=== PATIENT | female | born 1945 | race Caucasian/White ===

== ENCOUNTER 2022-01-02 01:50 | Inpatient (IN) | payer MEDICARE, SELFPAY ==
[2022-01-02] VITALS (16 sets, daily range): BP systolic 107–180; BP diastolic 30–78; PULSE 52–75; RESP 12–20; TEMP 36.2–37.5; O2SAT 93–100; BMI 33.0
--- NOTE | ~2022-01-02 | XR_ITS ---
EXAMINATION: XR CHEST CLINICAL INFORMATION: Chest pain COMPARISON: None TECHNIQUE: Frontal view of the chest was obtained. FINDINGS: Normal symmetric lung volumes. No parenchymal consolidation. No pleural effusion. No pneumothorax. Cardiomediastinal silhouette and pulmonary vascularity are within normal limits. No acute osseous abnormalities. XR/XR chest 1V IMPRESSION: Unremarkable examination.
--- NOTE | ~2022-01-02 | US_ITS ---
EXAMINATION: US ABDOMEN LIMITED CLINICAL INFORMATION: Cholecystitis. COMPARISON: CT performed earlier same date TECHNIQUE: Real-time imaging of the right upper quadrant abdominal viscera. FINDINGS: Multiple large stones present within the gallbladder, including a 4 cm stone seen on the prior CT which appears impacted near the gallbladder neck. Gallbladder wall is thickened 5 mm with intramural edema. Sonographic Lambert sign is positive. Common bile duct measures 0.5 cm. US/US abdomen limited IMPRESSION: Findings compatible with acute calculus cholecystitis.
--- NOTE | ~2022-01-02 | CT_ITS ---
EXAMINATION: CT ABDOMEN AND PELVIS WITHOUT CONTRAST CLINICAL INFORMATION: Right upper quadrant and epigastric pain COMPARISON: 02/08/2008 TECHNIQUE: Multidetector volumetric imaging was performed from the superior aspect of the liver through the pubic symphysis. Sagittal and coronal reformatted images were obtained on the technologist's workstation. This CT examination was performed using dose optimization techniques as appropriate, variously including the following: *Automated exposure control *Adjustment of mA and/or kV according to patient size (this includes techniques or standardized protocols for targeted exams where dose is matched to indication/reason for exam; i.e. extremities or head) *Use of iterative reconstruction technique DLP: 659* mGy-cm FINDINGS: LUNG BASES: The visualized lung bases are unremarkable. LIVER, GALLBLADDER, AND BILIARY TREE: The liver is normal in size, shape, and attenuation. No focal hepatic lesion or biliary ductal dilatation is present. There is cholelithiasis, with a large 3.8 cm stone within the gallbladder neck. Gallbladder wall thickening is evident. PANCREAS: Unremarkable. SPLEEN: Unremarkable. ADRENAL GLANDS: Unremarkable. KIDNEYS AND URETERS: The kidneys are normal in size, shape, and attenuation. There is a 4.0 cm simple cyst in the anterior cortex of the right kidney and a 2.5 cm simple cyst in the posterior cortex of the right kidney. These are benign and require no further follow-up. No hydronephrosis, hydroureter, or calculi seen. No perinephric stranding. BLADDER: Unremarkable. GASTROINTESTINAL TRACT: Scattered sigmoid colonic diverticula. No evidence of diverticulitis. Normal appendix. Stomach and small bowel unremarkable. ABDOMINAL WALL: No significant hernia is appreciated. LYMPH NODES: Normal. VASCULAR: Aorta is atherosclerotic but normal caliber. PELVIC VISCERA: Uterus and ovaries unremarkable. OSSEOUS STRUCTURES: No acute or suspicious osseous abnormalities. CT/CT abdomen pelvis wo con IMPRESSION: * There is cholelithiasis including a large nearly 4 cm stone in the gallbladder neck. Gallbladder wall thickening and mild gallbladder distention is findings could certainly be compatible with cholecystitis from a CT imaging standpoint. * Scattered sigmoid colonic diverticula without evidence of diverticulitis. Fleischner guidelines were followed.
[2022-01-02 02:03] LABS: Glucose, Whole Blood 218 mg/dL (60-115)
--- NOTE | 2022-01-02 02:14 | ED_ITS ---
HPI - Chest Pain General Chief Complaint: Chest Pain Stated Complaint: CP,SOB [id number] Time Seen by Provider: 01/02/22 02:14 Source: patient Mode of arrival: ambulatory Limitations: no limitations History of Present Illness HPI narrative: Patient with no known coronary artery disease comes to the ER for mid chest pain epigastric pain radiating to the right side since 18:30 yesterday. Patient feel nauseated took ibuprofen without any response. No vomiting no diaphoresis no back pain patient does have history of diabetes and she is on metformin patient received aspirin by EMS no fever no chills no diarrhea no melena patient denies any palpitation no dizziness or syncope Related Data Allergies Allergy/AdvReac Type Severity Reaction Status Date / Time No Known Allergies Allergy Mild N/A Verified 01/02/22 02:03 Review of Systems Review of Systems: Yes all other systems are reviewed and are negative [facility] Social History Social History Advance Directives: No Advance Directives Information Provided: No Physical Exam Vital Signs: Vital Signs: Last Vital Signs Temp 98.1 F 01/02/22 01:53 Pulse 56 01/02/22 06:14 Resp 14 01/02/22 06:14 BP 140/58 H 01/02/22 06:14 Pulse Ox 97 01/02/22 06:14 O2 Del Method 01/02/22 06:14 BMI result Body Mass Index 33.0 Appearance: Alert. Oriented X3. No acute distress. Eyes: No pallor or icterus ENT: Pharynx normal. Oral Mucosa moist Neck: Normal inspection. Neck supple. CVS: Normal heart rate and rhythm. Pulses normal. Respiratory: No respiratory distress. Equal air entry bilateral, no wheezin g/rales/rhonchi Abdomen: Soft , tenderness in epigastric and right upper quadrant with guarding , Lambert sign positive no rebound tenderness Bowel sounds are present, no mass palpable, no CVA tenderness Skin: Skin warm and dry. Normal skin color. Normal skin turgor. Extremities: No lower extremity edema. No calf tenderness Neuro: Oriented X 3. No motor deficit. MDM - Chest Pain MDM Narrative Medical decision making narrative: Patient with epigastric pain sudden onset with nausea workup revealed 4 cm gallstone blocking the gallbladder neck with findings of gallbladder wall thickening and fluid collection suggestive of acute cholecystitis. Case discussed Dr. Ribera surgeon will admit the patient to surgery Differential Diagnosis Differential diagnosis: Likely atypical chest pain and biliary colic Medical Records Data Attestation: I reviewed the patient's medical records. Lab Data Attestation: I reviewed the patient's lab results. Result diagrams: 01/02/22 02:40 01/02/22 03:37 Labs: Lab Results 01/02/22 01/02/22 01/02/22 Range/Units 01:59 02:40 02:40 WBC 10.4 (4.8-10.8) X10*3/uL RBC 4.21 (4.20-5.50) X10*6/uL Hgb 13.7 (12.0-16.0) g/dl Hct 38.9 (37.0-47.0) % MCV 92.4 (80.0-98.0) fL MCH 32.5 (27.0-33.0) pg MCHC 35.2 H (31.0-35.0) g/dl RDW 12.2 (11.0-16.0) % Plt Count 288 (160-400) X10*3/uL MPV 9.7 (9.4-12.3) fL Immature Gran % (Auto) 0.3 (0.0-0.4) % Neut % (Auto) 84.5 H (45-73) % Lymph % (Auto) 8.8 L (20-40) % [place] % (Auto) 5.7 (2-11) % Eos % (Auto) 0.4 (0-4) % Baso % (Auto) 0.3 (0-2) % Lymph # (Auto) 0.9 L (1.2-4.9) X10*3/uL [place] # (Auto) 0.6 (0.1-1.2) X10*3/uL Eos # (Auto) 0.0 (0.0-0.4) X10*3/uL Baso # (Auto) 0.0 (0.0-0.2) X10*3/uL Abs Immat Gran (auto) 0.03 (0.00-0.03) X10*3/uL Absolute Neuts (auto) 8.8 H (2.0-8.3) x10*3/uL Absolute Nucleated RBC 0.000 (0.0-0.012) X10*3/uL Nucleated RBC % (auto) 0.0 (0.0-0.2) /100WBC PT 11.7 (9.9-13.0) SEC INR 1.0 (0.9-1.1) APTT 35.1 (24.1-38.0) SEC Sodium (135-145) mmol/L Potassium (3.3-5.1) mmol/L Chloride (96-108) mmol/L Carbon Dioxide (22-29) mmol/L Anion Gap (12-20) BUN (9-16) mg/dL Creatinine (0.5-1.4) mg/dL Estim Creat Clear Calc Estimated GFR POC Glucose 218 H (60-115) mg/dL Random Glucose (60-115) mg/dL Lactic Acid (0.5-2.0) mmol/L Calcium (8.4-10.2) mg/dL Total Bilirubin (0.0-1.0) mg/dL AST (5-31) U/L ALT (0-31) U/L Alkaline Phosphatase (39-117) U/L Troponin I High Sens (<3.5-17.0) ng/L Total Protein (6.5-8.0) g/dL Albumin (3.5-5.0) g/dL Lipase (8-78) U/L 01/02/22 01/02/22 01/02/22 Range/Units 02:40 02:40 03:37 WBC (4.8-10.8) X10*3/uL RBC (4.20-5.50) X10*6/uL Hgb (12.0-16.0) g/dl Hct (37.0-47.0) % MCV (80.0-98.0) fL MCH (27.0-33.0) pg MCHC (31.0-35.0) g/dl RDW (11.0-16.0) % Plt Count (160-400) X10*3/uL MPV (9.4-12.3) fL Immature Gran % (Auto) (0.0-0.4) % Neut % (Auto) (45-73) % Lymph % (Auto) (20-40) % [place] % (Auto) (2-11) % Eos % (Auto) (0-4) % Baso % (Auto) (0-2) % Lymph # (Auto) (1.2-4.9) X10*3/uL [place] # (Auto) (0.1-1.2) X10*3/uL Eos # (Auto) (0.0-0.4) X10*3/uL Baso # (Auto) (0.0-0.2) X10*3/uL Abs Immat Gran (auto) (0.00-0.03) X10*3/uL Absolute Neuts (auto) (2.0-8.3) x10*3/uL Absolute Nucleated RBC (0.0-0.012) X10*3/uL Nucleated RBC % (auto) (0.0-0.2) /100WBC PT (9.9-13.0) SEC INR (0.9-1.1) APTT Cancelled (24.1-38.0) SEC Sodium 137 (135-145) mmol/L Potassium 4.9 (3.3-5.1) mmol/L Chloride 109 H (96-108) mmol/L Carbon Dioxide 19 L (22-29) mmol/L Anion Gap 14 (12-20) BUN 15 (9-16) mg/dL Creatinine 0.94 (0.5-1.4) mg/dL Estim Creat Clear Calc 48.5 Estimated GFR 58 POC Glucose (60-115) mg/dL Random Glucose 196 H (60-115) mg/dL Lactic Acid (0.5-2.0) mmol/L Calcium 8.1 L (8.4-10.2) mg/dL Total Bilirubin 0.7 (0.0-1.0) mg/dL AST 21 (5-31) U/L ALT 15 (0-31) U/L Alkaline Phosphatase 58 (39-117) U/L Troponin I High Sens 5.9 (<3.5-17.0) ng/L Total Protein 6.6 (6.5-8.0) g/dL Albumin 3.6 (3.5-5.0) g/dL Lipase 13 (8-78) U/L 01/02/22 Range/Units 05:04 WBC (4.8-10.8) X10*3/uL RBC (4.20-5.50) X10*6/uL Hgb (12.0-16.0) g/dl Hct (37.0-47.0) % MCV (80.0-98.0) fL MCH (27.0-33.0) pg MCHC (31.0-35.0) g/dl RDW (11.0-16.0) % Plt Count (160-400) X10*3/uL MPV (9.4-12.3) fL Immature Gran % (Auto) (0.0-0.4) % Neut % (Auto) (45-73) % Lymph % (Auto) (20-40) % [place] % (Auto) (2-11) % Eos % (Auto) (0-4) % Baso % (Auto) (0-2) % Lymph # (Auto) (1.2-4.9) X10*3/uL [place] # (Auto) (0.1-1.2) X10*3/uL Eos # (Auto) (0.0-0.4) X10*3/uL Baso # (Auto) (0.0-0.2) X10*3/uL Abs Immat Gran (auto) (0.00-0.03) X10*3/uL Absolute Neuts (auto) (2.0-8.3) x10*3/uL Absolute Nucleated RBC (0.0-0.012) X10*3/uL Nucleated RBC % (auto) (0.0-0.2) /100WBC PT (9.9-13.0) SEC INR (0.9-1.1) APTT (24.1-38.0) SEC Sodium (135-145) mmol/L Potassium (3.3-5.1) mmol/L Chloride (96-108) mmol/L Carbon Dioxide (22-29) mmol/L Anion Gap (12-20) BUN (9-16) mg/dL Creatinine (0.5-1.4) mg/dL Estim Creat Clear Calc Estimated GFR POC Glucose (60-115) mg/dL Random Glucose (60-115) mg/dL Lactic Acid 0.4 L (0.5-2.0) mmol/L Calcium (8.4-10.2) mg/dL Total Bilirubin (0.0-1.0) mg/dL AST (5-31) U/L ALT (0-31) U/L Alkaline Phosphatase (39-117) U/L Troponin I High Sens (<3.5-17.0) ng/L Total Protein (6.5-8.0) g/dL Albumin (3.5-5.0) g/dL Lipase (8-78) U/L ECG Data ECG #1: Attestation: I personally reviewed and interpreted this ECG as follows: Interpretation: Sinus bradycardia with heart rate 50 beats per minute with first-degree block with PACs and PVCs no acute ST T wave changes no acute ischemia Discharge Plan Discharge Clinical Impression: Acute calculous cholecystitis Patient Disposition: Admitted As Inpatient
--- NOTE | 2022-01-02 02:27 | ECG_ITS ---
Test Reason : CHEST PAIN Blood Pressure : / mmHG Vent. Rate : 050 BPM Atrial Rate : 050 BPM P-R Int : 322 ms QRS Dur : 118 ms QT Int : 488 ms P-R-T Axes : 025 062 042 degrees QTc Int : 444 ms Sinus bradycardia with 1st degree A-V block with Premature supraventricular complexes Incomplete right bundle branch block Borderline ECG When compared with ECG of 23-FEB-2008 17:28, Premature supraventricular complexes are now Present Incomplete right bundle branch block is now Present Referred By: Tim Rivers Electronically Signed By:BRAXTON WILLIAM
[2022-01-02 02:44] LABS: MANUAL DIFF FLAG NO
[2022-01-02 02:45] LABS: Basophils Percent Auto 0.3 % (0-2); Eosinophils Percent Auto 0.4 % (0-4); Hematocrit 38.9 % (37.0-47.0); Hemoglobin 13.7 g/dl (12.0-16.0); Imm Gran Abs Auto 0.03 X10*3/uL (0.00-0.03); Imm Gran Pct Auto 0.3 % (0.0-0.4); Lymphocytes Absolute Auto 0.9 X10*3/uL (1.2-4.9); Lymphocytes Percent Auto 8.8 % (20-40); Mean Corpuscular HGB Conc 35.2 g/dl (31.0-35.0); Mean Corpuscular Hemoglobin 32.5 pg (27.0-33.0); Mean Corpuscular Volume 92.4 fL (80.0-98.0); Mean Platelet Volume 9.7 fL (9.4-12.3); Monocytes Absolute Auto 0.6 X10*3/uL (0.1-1.2); Monocytes Percent Auto 5.7 % (2-11); Neutrophils Absolute Auto 8.8 x10*3/uL (2.0-8.3); Neutrophils Percent Auto 84.5 % (45-73); Platelet Count 288 X10*3/uL (160-400); Red Blood Count 4.21 X10*6/uL (4.20-5.50); Red Cell Distribution Width 12.2 % (11.0-16.0); White Blood Count 10.4 X10*3/uL (4.8-10.8)
[2022-01-02] MEDS: 0.9 % Sodium Chloride 1,000 ML 999 ML IV (02:45)
[2022-01-02 02:51] LABS: Prothrombin Time 11.7 SEC (9.9-13.0)
[2022-01-02 02:54] LABS: Partial Thromboplastin Time 35.1 SEC (24.1-38.0)
[2022-01-02 03:08] LABS: Troponin-I High Sensitivity 5.9 ng/L (<3.5-17.0)
[2022-01-02 03:59] LABS: Alanine Aminotransferase 15 U/L (0-31); Albumin Level 3.6 g/dL (3.5-5.0); Alkaline Phosphatase 58 U/L (39-117); Anion Gap 14 (12-20); Aspartate Amino Transferase 21 U/L (5-31); Bilirubin Total 0.7 mg/dL (0.0-1.0); Blood Urea Nitrogen 15 mg/dL (9-16); Calcium 8.1 mg/dL (8.4-10.2); Carbon Dioxide 19 mmol/L (22-29); Chloride 109 mmol/L (96-108); Creatinine Clr Calc Pharmacy 48.5; Estimated Glomerular Filt Rate 58; Glucose Random 196 mg/dL (60-115); Lipase 13 U/L (8-78); Potassium 4.9 mmol/L (3.3-5.1); Sodium 137 mmol/L (135-145); Total Protein 6.6 g/dL (6.5-8.0)
[2022-01-02 05:21] LABS: Lactic Acid 0.4 mmol/L (0.5-2.0)
[2022-01-02] MEDS: Morphine Sulfate 4 MG/ML CARTRIDGE IVPUSH (05:32)
[2022-01-02] MEDS: Piperacillin Sodium/Tazobactam 3.375 GM in 0.9 % Sodium Chloride 50 ML IV (05:32)
[2022-01-02] MEDS: ondansetron HCL 4 MG/2 ML VIAL IVPUSH (05:32)
--- NOTE | 2022-01-02 07:36 | PM.HPGS ---
History of Present Illness History of Present Illness Date of Service: 01/06/22 Chief complaint: Acute chloecystitis Narrative: Radha Avelar is a 76 year old female who came to the emergency room because of sternal pain and right of per quadrant pain. She says that this started about 06:00 o'clock last night. She says she had some back pain at that time. She in view of the persistence of pain, she came to the ER at midnight. She says she has had no vomiting although she tried to make himself throw up as she thought that it might help with her pain. She also thought that she may have kidney stones as she says that she has had this in the past. Review of Systems Constitutional: Constitutional: Denies chills and Denies fever(s) Cardiovascular: Cardiovascular: Denies chest pain, Denies dyspnea and Denies dyspnea on exertion Respiratory: Respiratory: Denies cough, Denies dyspnea and Denies dyspnea on exertion Gastrointestinal: Gastrointestinal: Denies hematochezia and Denies change in bowel habits Genitourinary: Genitourinary: Denies hematuria Musculoskeletal: Musculoskeletal: Denies back pain and Denies limited range of motion Neurologic: Denies focal weakness and Denies convulsions Psychiatric: Psychiatric: Denies depression and Denies mood swings PMFSH Past Medical History Medical History Diabetes mellitus Hypertension Kidney stones Social History Social History Household Members: None Housing: Other Housing Other:: mobile home Do you presently have visiting nurse or other home services: No Patient Tobacco Use Status: Never used Tobacco Second Hand Smoke Exposure: No service: No Current occupational status: retired [employer] Allergies Allergy/AdvReac Type Severity Reaction Status Date / Time No Known Allergies Allergy Mild N/A Verified 01/02/22 02:03 Active Medications: Current Medications Heparin Sodium (Porcine) (Heparin Sodium,Porcine 5,000 Unit/Ml Vial) 5,000 unit SUBCUT BID ONE Stop: 01/03/22 10:34 Sodium Chloride (Ns) 1,000 mls @ 100 mls/hr IVCONT .Q10H JORGE Ondansetron HCl (Ondansetron Hcl 4 Mg/2 Ml Vial) 4 mg IVPUSH Q8H PRN PRN Reason: Nausea and Vomiting Sodium Chloride (0.9 % Sodium Chloride Flush 3 Ml Syringe) 3 ml IVFLUSH QSHIFT [facility] Home Medications Medication Instructions Recorded Confirmed Last Taken Type aspirin 81 mg chewable tablet 81 mg PO DAILY 01/02/22 01/02/22 01/01/22 History cholecalciferol (vitamin D3) 50 50 mcg PO TU@0900 01/02/22 01/02/22 01/01/22 History mcg (2,000 unit) tablet citalopram 10 mg tablet 1 tab PO DAILY 01/02/22 01/02/22 01/01/22 History hydrochlorothiazide 12.5 mg tablet 1 tab PO DAILY 01/02/22 01/02/22 01/01/22 History levothyroxine 50 mcg tablet 1 tab PO QAM 01/02/22 01/02/22 01/01/22 History losartan 100 mg tablet 1 tab PO BEDTIME 01/02/22 01/02/22 01/01/22 History magnesium 250 mg tablet 250 mg PO DAILY 01/02/22 01/02/22 01/01/22 History metformin 750 mg tablet,extended 1 tab PO QPM 01/02/22 01/02/22 01/01/22 History release 24 hr omeprazole 20 mg capsule,delayed 1 cap PO DAILY 01/02/22 01/02/22 01/01/22 History release simvastatin 20 mg tablet 1 tab PO BEDTIME 01/02/22 01/02/22 01/01/22 History Physical Exam Vital Signs: Vital Signs: Last Vital Signs Temp 98.1 F 01/02/22 01:53 Pulse 56 01/02/22 06:14 Resp 14 01/02/22 06:14 BP 140/58 H 01/02/22 06:14 Pulse Ox 97 01/02/22 06:14 O2 Del Method 01/02/22 06:14 BMI result Body Mass Index 33.0 Const: General: comfortable and no acute distress Orientation/consciousness: patient oriented x3 Neck: Neck: Yes no lymphadenopathy Resp: Auscultation: clear to auscultation bilaterally Cardio: Rhythm: regular rhythm GI: Other: tender on the right upper quadrant, no guarding rebound Palpation (GI): Soft to palpation, Tenderness to palpation present (GI) and no guarding Neuro: General: patient oriented x3 Results Results Labs: Short CBC 01/02/22 Range/Units 02:40 WBC 10.4 (4.8-10.8) X10*3/uL Hgb 13.7 (12.0-16.0) g/dl Hct 38.9 (37.0-47.0) % Plt Count 288 (160-400) X10*3/uL BMP 01/02/22 03:37 Sodium 137 Potassium 4.9 Chloride 109 H Carbon Dioxide 19 L BUN 15 Creatinine 0.94 Calcium 8.1 L Liver Function 01/02/22 Range/Units 03:37 Total Bilirubin 0.7 (0.0-1.0) mg/dL AST 21 (5-31) U/L ALT 15 (0-31) U/L Alkaline Phosphatase 58 (39-117) U/L Albumin 3.6 (3.5-5.0) g/dL Additional studies: Laboratory Results WBC 10.4 X10*3/uL (4.8-10.8) 01/02/22 02:40 RBC 4.21 X10*6/uL (4.20-5.50) 01/02/22 02:40 Hgb 13.7 g/dl (12.0-16.0) 01/02/22 02:40 Hct 38.9 % (37.0-47.0) 01/02/22 02:40 MCV 92.4 fL (80.0-98.0) 01/02/22 02:40 MCH 32.5 pg (27.0-33.0) 01/02/22 02:40 MCHC 35.2 g/dl (31.0-35.0) H 01/02/22 02:40 RDW 12.2 % (11.0-16.0) 01/02/22 02:40 Plt Count 288 X10*3/uL (160-400) 01/02/22 02:40 MPV 9.7 fL (9.4-12.3) 01/02/22 02:40 Immature Gran % (Auto) 0.3 % (0.0-0.4) 01/02/22 02:40 Neut % (Auto) 84.5 % (45-73) H 01/02/22 02:40 Lymph % (Auto) 8.8 % (20-40) L 01/02/22 02:40 [place] % (Auto) 5.7 % (2-11) 01/02/22 02:40 Eos % (Auto) 0.4 % (0-4) 01/02/22 02:40 Baso % (Auto) 0.3 % (0-2) 01/02/22 02:40 Lymph # (Auto) 0.9 X10*3/uL (1.2-4.9) L 01/02/22 02:40 [place] # (Auto) 0.6 X10*3/uL (0.1-1.2) 01/02/22 02:40 Eos # (Auto) 0.0 X10*3/uL (0.0-0.4) 01/02/22 02:40 Baso # (Auto) 0.0 X10*3/uL (0.0-0.2) 01/02/22 02:40 Abs Immat Gran (auto) 0.03 X10*3/uL (0.00-0.03) 01/02/22 02:40 Absolute Neuts (auto) 8.8 x10*3/uL (2.0-8.3) H 01/02/22 02:40 Absolute Nucleated RBC 0.000 X10*3/uL (0.0-0.012) 01/02/22 02:40 Nucleated RBC % (auto) 0.0 /100WBC (0.0-0.2) 01/02/22 02:40 PT 11.7 SEC (9.9-13.0) 01/02/22 02:40 INR 1.0 (0.9-1.1) 01/02/22 02:40 APTT 35.1 SEC (24.1-38.0) 01/02/22 02:40 APTT Cancelled 01/02/22 02:40 Sodium 137 mmol/L (135-145) 01/02/22 03:37 Potassium 4.9 mmol/L (3.3-5.1) 01/02/22 03:37 Chloride 109 mmol/L (96-108) H 01/02/22 03:37 Carbon Dioxide 19 mmol/L (22-29) L 01/02/22 03:37 Anion Gap 14 (12-20) 01/02/22 03:37 BUN 15 mg/dL (9-16) 01/02/22 03:37 Creatinine 0.94 mg/dL (0.5-1.4) 01/02/22 03:37 Estim Creat Clear Calc 48.5 01/02/22 03:37 Estimated GFR 58 01/02/22 03:37 POC Glucose 218 mg/dL (60-115) H 01/02/22 01:59 Random Glucose 196 mg/dL (60-115) H 01/02/22 03:37 Lactic Acid 0.4 mmol/L (0.5-2.0) L 01/02/22 05:04 Calcium 8.1 mg/dL (8.4-10.2) L 01/02/22 03:37 Total Bilirubin 0.7 mg/dL (0.0-1.0) 01/02/22 03:37 AST 21 U/L (5-31) 01/02/22 03:37 ALT 15 U/L (0-31) 01/02/22 03:37 Alkaline Phosphatase 58 U/L (39-117) 01/02/22 03:37 Troponin I High Sens 5.9 ng/L (<3.5-17.0) 01/02/22 02:40 Total Protein 6.6 g/dL (6.5-8.0) 01/02/22 03:37 Albumin 3.6 g/dL (3.5-5.0) 01/02/22 03:37 Lipase 13 U/L (8-78) 01/02/22 03:37 Impressions Abdomen/Pelvis CT 01/02/22 03:08 IMPRESSION: * There is cholelithiasis including a large nearly 4 cm stone in the gallbladder neck. Gallbladder wall thickening and mild gallbladder distention is findings could certainly be compatible with cholecystitis from a CT imaging standpoint. * Scattered sigmoid colonic diverticula without evidence of diverticulitis. Fleischner guidelines were followed. Chest X-Ray 01/02/22 03:10 IMPRESSION: Unremarkable examination. Abdomen Ultrasound 01/02/22 05:35 IMPRESSION: Findings compatible with acute calculus cholecystitis. Assessment and Plan (1) Acute calculous cholecystitis: Status: Acute She has had right quadrant pain since last night. Her CAT scan ultrasound are suggestive of acute cholecystitis with the stone in the neck. I therefore explained to her the the technique of laparoscopic cholecystectomy and possible open cholecystectomy. I reviewed with her the risks including but not limited to bleeding, infections, injury to the other organs including bowel, common bile duct and the liver, retained stones, bile leak, as well as the benefits and alternatives. She says she understands and wants to proceed. Her LFTs are within normal. She otherwise looks comfortable and not in distress. She is hemodynamically stable. Quality Stroke Does the patient have a stroke diagnosis?: No VTE Prior VTE?: No VTE Risk Level:: Medical - moderate - high VTE Device Contraindication: N/A - Device Ordered VTE Drug Contraindication: N/A - Med Ordered Procedures Date of Service Date of Service: 01/02/22
--- NOTE | 2022-01-02 07:56 | PC.NURSE ---
pt seen by dr. vasquez, pt aware of plan of care.
[2022-01-02 08:06] LABS: Glucose, Whole Blood 165 mg/dL (60-115)
[2022-01-02] MEDS: 0.9 % Sodium Chloride Flush 3 ML SYRINGE IVFLUSH (08:55)
[2022-01-02] MEDS: 0.9 % Sodium Chloride 1,000 ML 100 ML IVCONT ×2 (08:55→16:35)
[2022-01-02] MEDS: Morphine Sulfate 4 MG/ML CARTRIDGE 3 MG IVPUSH ×2 (09:53→21:14)
--- NOTE | 2022-01-02 09:58 | PHA.MEDREC ---
Pharmacy Consult ? Medication Reconciliation Pharmacy has completed the medication reconciliation.
[2022-01-02 10:26] LABS: COVID-19 Test Negative (Negative)
--- NOTE | 2022-01-02 10:44 | PC.NURSE ---
rn to rn report given to brando (short stay surgery). pt aware of plan of care for surgery todayl.
[2022-01-02 11:37] LABS: Appearance Urine CLEAR; Color Urine YELLOW; Glucose Urine UA 500 MG/DL (NEG); Leukocyte Esterase Urine NEG (NEG); Nitrite Urine POS (NEG); UACC Culture Trigger YES; Urine Blood TRACE (NEG); Urine Ketones 5 MG/DL (NEG); Urine Protein NEG (NEG-TRACE)
[2022-01-02 12:13] LABS: Squamous Epithelial Cell Urine 1+ /LPF
[2022-01-02 12:14] LABS: Bacteria Urine 3+ /LPF; WBC Urine 0-2 /HPF (0-4)
[2022-01-02 12:15] LABS: RBC Urine 0-2 /HPF (0)
[2022-01-02 13:22] LABS: Glucose, Whole Blood 158 mg/dL (60-115)
--- NOTE | 2022-01-02 15:46 | P.OP_ITS ---
Operative Note Operative Note Date of Service: 01/02/22 Narrative: Preop diagnosis: Acute calculous cholecystitis Postop diagnosis: Acute calculous cholecystitis with hydrops of the gallbladder Procedure: Laparoscopic cholecystectomy Surgeon: Awais Ribera MD Public Health Dentist: chirag Castellanos student The patient is a 70 year female who came into the emergency room because of right upper quadrant pain and tenderness. He had an ultrasound and CAT scan which was consistent with acute cholecystitis with a large stone along with significant bladder wall thickening. She understood the technique of laparoscopic cholecystectomy. She was aware of the risks, benefits, and alte rnatives. She had wanted to proceed She was brought to the operating room. She was placed supine under general anesthesia via endotracheal tube. The abdomen is prepped and draped in the usual sterile fashion. A surgical time-out was done. The patient received Cefotan 2 g IV preoperatively Then made a short supraumbilical incision using a blade 15. This was carried down with blunt dissection to the full-thickness skin subcutaneous fat down to the fascia. The fascia was incised. The peritoneum was entered. Through this incision a Daniel port was introduced. Pneumoperitoneum was introduced to a pressure of 15 mm hg. From here on the rest of the procedure was done under vision with the laparoscoped With laparoscopic visualization of proceeded to insert a 5/12 mm port in the epi gastric area below the subcostal margin. Two 5 mm ports were introduced through small incisions below the subcostal margin along the anterior axillary line and the midclavicular line. graspers were placed through these working ports. The patient is placed in head-up and [id number] position. The gallbladder was seen and this was markedly distended, very edematous and inflamed. We could not apply a grasper because of the marked distention. There was also a very large stone within the gallbladder itself. Therefore decompressed the gallbladder using an aspirating needle to 1 of the working ports. The fluid drain was tissue and clear and this was consistent with the hydrops of the gallbladder With the gallbladder adequately decompressed, we were able to eventually place a grasper at the fundus and this was used to retract the gallbladder cephalad The neck of the gallbladder was difficult to visualize because it was very deep. We therefore had to do a lot of careful dissection bluntly with the tip of the suction studio operations engineer in charge. I had to carefully tease off the very edematous peritoneum and fibroareolar tissue surrounding the neck. I was eventually able to apply a grasper near the neck of the gallbladder and this was used to retract the gallbladder laterally. At this point the gallbladder was being retracted in a cephalad and lateral fashion to put the area of the cystic duct on stretch. In the neck of the gallbladder was very inflamed and edematous. We had to do the dissection of the inflamed peritoneum and edematous areolar tissue very slowly. This part of the procedure took an extended period of time. We had to use it angled scope to allow better visualization. Eventually, the upper round and careful dissection was able to see what appeared to be the cystic duct. I bluntly dissected this using the [place] dissector and the right angle dissector. I was able to carefully dissect this circumferentially and define its confluence of the neck gall the gallbladder. I could also see the cystic artery running alongside this, in case in inflamed indurated fatty tissue With the cystic duct carefully identified and confirmed, I applied clips with 2 clips vanc plate distally. The cystic duct was transected between clips with Endo scissors. With traction of the gallbladder why away from the liver bed I proceeded to continue to bluntly dissect the hilum until was able to clearly identify what appeared to be the cystic artery. Clips were applied with 2 clips applied distally and the cystic artery was transected between clips at well. We continued to divide across the hilum, using the hook electrocautery to divide the very thickened, indurated fibrotic tissue. Reach the interface of the gallbladder wall and the liver bed and the peritoneum was very thickened with a rind surrounding the gallbladder. We had to divide this with the hook electrocautery heavy proceeded with careful dissection using this method of dissection to separate the gallbladder from the liver bed. Fully the gallbladder, using the electrocautery hook to divide the thick rind off of the rest of the liver bed. We proceeded with this all the way to the fundus until the entire gallbladder was completely . The gallbladder was retrieved through an endobag through the umbilical incision. We had to extend the fascial incision because of the very large stone. I reinserted all ports and re-insufflated. I examined the subhepatic space. There was hemostatic with no evidence of bleeding or any leak. The rest of the peritoneal cavity appeared unremarkable There was no evidence of any bowel injury Once hemostasis was confirmed, I irrigated a little bit and suction out the irrigant fluid. I desufflated the port sites by removed all ports under vision the laparoscoped I closed the fascia of the umbilical incision with a running Maxon 1 stitch I closed all skin incisions with subcuticular Dexon 4-0 subcuticular sutures. All incisions were infiltrated with Marcaine 0.5% for postop analgesia. Steri-Strips and dressings were applied. The procedure was completed. The patient tolerated the procedure well. There were no complications noted. Initial and final counts of sponges and instruments were correct. Estimated blood loss was about 50 cc The patient for extubated without difficulty and transferred to recovery room with stable vital signs.
[2022-01-02] MEDS: fentaNYL citrate/PF 100 MCG/2 ML VIAL 25 MCG IVPUSH (16:22)
--- NOTE | 2022-01-02 17:46 | PM.EVENT ---
Event Note Date of Service: 01/02/22 Event Note: underwent lap faith had very large GB with hydrops seems to have good pain control abd soft stable VS pain mgt possible home loida daughter Maritza updated
[2022-01-02 20:30] LABS: Glucose, Whole Blood 199 mg/dL (60-115)
[2022-01-03] MEDS: Morphine Sulfate 4 MG/ML CARTRIDGE 3 MG IVPUSH (02:59)
[2022-01-03] MEDS: 0.9 % Sodium Chloride 1,000 ML 100 ML IVCONT (03:12)
[2022-01-03 03:14] VITALS: BP 126/58; PULSE 62; RESP 18; TEMP 36.8; O2SAT 97
[2022-01-03 08:00] VITALS: BP 128/57; PULSE 61; RESP 16; TEMP 37.2; O2SAT 95
--- NOTE | 2022-01-03 09:54 | P.PNGS_ITS ---
Subjective Subjective Date of Service: 01/03/22 Interval history: Reports right shoulder pain and mild incisional pain. Overall she does feel improved however. She is tolerating a clear liquid diet. Physical Exam Vital Signs: Vital Signs: Last Vital Signs Temp 99 F 01/03/22 08:00 Pulse 61 01/03/22 08:00 Resp 16 01/03/22 08:00 BP 128/57 L 01/03/22 08:00 Pulse Ox 95 01/03/22 08:00 O2 Del Method 01/03/22 08:00 O2 Flow Rate 2 01/03/22 03:14 BMI result Body Mass Index 33.0 Const: General: comfortable and no acute distress Nutritional Appearance: well nourished Orientation/consciousness: patient oriented x3 Limitations: no limitations Resp: Effort & Inspection: normal respiratory effort Auscultation: clear to auscultation bilaterally GI: Inspection: Yes normal to inspection Palpation (GI): Soft to palpation, Tenderness to palpation present (GI) (Around incisions) and no hernias Percussion: Yes normal to percussion Skin: Other: Warm, dry, no rash Neuro: General: patient oriented x3 Extrem: Other: No edema Objective Data Active Medications Fentanyl (Fentanyl Citrate/Pf 100 Mcg/2 Ml Vial) 25 mcg IVPUSH Q5M PRN PRN Reason: pain Last Admin: 01/02/22 16:22 Dose: 25 mcg Documented By: ZAHIDA Sodium Chloride (Ns) 1,000 mls @ 100 mls/hr IVCONT .Q10H [facility] Last Admin: 01/03/22 03:12 Dose: 100 mls/hr Documented By: ATUL Morphine Sulfate (Morphine Sulfate 4 Mg/Ml Cartridge) 3 mg IVPUSH Q4H PRN; Protocol PRN Reason: cholecystitis Last Admin: 01/03/22 02:59 Dose: 3 mg Documented By: ATUL Ondansetron HCl (Ondansetron Hcl 4 Mg/2 Ml Vial) 4 mg IVPUSH Q8H PRN PRN Reason: Nausea and Vomiting Oxycodone HCl (Oxycodone Hcl Immed Release 5 Mg Tablet) 5 mg PO Q4H PRN PRN Reason: Pain, Moderate (Pain Scale 4-6 Sodium Chloride (0.9 % Sodium Chloride Flush 3 Ml Syringe) 3 ml IVFLUSH QSHIFT [facility] Last Admin: 01/03/22 08:30 Dose: Not Given Documented By: DENZEL Non-Admin Reason: IV Running Labs CBC & Chem 7: 01/02/22 02:40 01/02/22 03:37 Labs: Laboratory Results - last 24 hr 01/02/22 01/02/22 01/02/22 09:59 11:28 13:19 POC Glucose 158 H Urine Color YELLOW Urine Appearance CLEAR Urine pH 6.0 Ur Specific [place] 1.020 Urine Protein NEG Urine Glucose (UA) 500 H Urine Ketones 5 Urine Blood TRACE Urine Nitrite POS H Ur Leukocyte Esterase NEG Urine RBC 0-2 Urine WBC 0-2 Ur Squamous Epith Cells 1+ Urine Bacteria 3+ COVID-19 (YANI) Negative COVID-19 Clin Com See Note 01/02/22 19:58 POC Glucose 199 H Urine Color Urine Appearance Urine pH Ur Specific [place] Urine Protein Urine Glucose (UA) Urine Ketones Urine Blood Urine Nitrite Ur Leukocyte Esterase Urine RBC Urine WBC Ur Squamous Epith Cells Urine Bacteria COVID-19 (YANI) COVID-19 Clin Com Microbiology Microbiology Results: Microbiology 01/02/22 05:04 Blood Culture - Preliminary Blood - Venous No growth after 24 hours. 01/02/22 05:04 Blood Culture - Preliminary Blood - Venous No growth after 24 hours. Procedures Date of Service Date of Service: 01/03/22 Progress Note: A&P Assessment and plan (1) Acute calculous cholecystitis: Status: Acute Plan Pod 1 S/P laparoscopic cholecystectomy for hydropic cholecystitis. She is reasonably comfortable this time but does report some shoulder pain. I will advance her to a regular diet (low-fat) this morning. If she tolerates a regular diet, will plan on discharge to home. Her daughter will be taking her home and she reports she will be staying with her son the next several days. Time Spent With Patient Time: Total time spent is greater than 50% in coordination of care (as documented) at patient's floor/unit and/or counseling patient: Quality Stroke Does the patient have a stroke diagnosis?: No VTE Prior VTE?: No VTE Risk Level:: Medical - moderate - high VTE Device Contraindication: N/A - Device Ordered VTE Drug Contraindication: N/A - Med Ordered
--- NOTE | 2022-01-03 10:00 | MHC.CM.PN ---
PATIENT IS INDEPENDENT WITH ALL ADLS. NO [facility]NA OR ELDER SERVICES. SHE HAS A HCP NAMING HER 3 CHILDREN AGENTS. SHAJI (IN ROOM) IS PRIMARY AGENT. CONVERSATION WAS HAD WITH PATIENT AND SHAJI WITH PERMISSION FROM PATIENT. SHE TELLS CASE MANAGEMENT THAT IF SHE CAN TOLERATE HER DIET, SHE WILL RETURN HOME TODAY PLAN IS NO SERVICES. PATIENT STATES THAT SHE IS PLANNING TO STAY WITH ONE OF HER SONS AT [place]. IMM 01/03 IN CHART
[2022-01-03 11:47] VITALS: BP 139/63; PULSE 63; RESP 17; TEMP 36.9; O2SAT 95
[2022-01-03] MEDS: Levothyroxine Sodium 50 MCG TABLET PO (12:36)
--- NOTE | 2022-01-05 11:59 | PM.DS ---
DS: Providers Provider Date of Service: 01/02/22 Date of admission: 01/02/22 07:31 Date of discharge: 01/03/22 Primary care physician: Mckenna Doshi NP Admitting clinician: Awais Ribera DS: Diagnosis Discharge Diagnosis (1) Acute calculous cholecystitis: Status: Acute DS: Summary Hospital Course Hospital Course: 76-year-old female who admitted on the patternmaker all around 01/02/2022 because of right upper quadrant pain. Her ultrasound and CAT scan were both suggestive of acute cholecystitis. She underwent laparoscopic cholecystectomy on 01/02/2022. She tolerated procedure well. She was noted to have a hydropic and markedly inflamed gallbladder. She was started on clear liquids postop. She tolerated this well. She was given regular diet on postop day 1 which continued to tolerate. She did not have any other postop events. She remained comfortable with good pain control. She was therefore discharged on January 03, 2022. Time Spent with Patient Time attestation: Total time spent providing and/or coordinating discharge services: Discharge coordination time: Less than 30 minutes Quality: Safe Use of Opioids Does Pt have an Active Cancer Diagnosis on the Problem List?: No Quality: Stroke Does the patient have a stroke diagnosis?: No Physical Exam Vital Signs: Vital Signs: Last Vital Signs Temp 98.4 F 01/03/22 11:47 Pulse 63 01/03/22 11:47 Resp 17 01/03/22 11:47 BP 139/63 01/03/22 11:47 Pulse Ox 95 01/03/22 11:47 O2 Del Method 01/03/22 11:47 O2 Flow Rate 2 01/03/22 11:47 BMI result Body Mass Index 33.0 Const: General: comfortable and no acute distress Orientation/consciousness: patient oriented x3 Neck: Neck: Yes no lymphadenopathy Resp: Auscultation: clear to auscultation bilaterally Cardio: Rhythm: regular rhythm GI: Other: all incisions healing well, not infected Palpation (GI): Soft to palpation, nontender and no guarding Neuro: General: patient oriented x3 DS: Data Data Completed and Pending Pending studies at discharge: Pending at discharge 01/02/22 15:08 Surgical [PTH] Routine Labs on day of discharge: Preliminary micro results at discharge 01/02/22 Unknown Urine Culture - Preliminary Urine clean catch - Urine means top Escherichia coli 01/02/22 05:04 Blood Culture - Preliminary Blood - Venous No growth after 48 hours. 01/02/22 05:04 Blood Culture - Preliminary Blood - Venous No growth after [address] scan - abdomen: Radiologist's impression: ITS Impressions Abdomen/Pelvis CT 01/02/22 03:08 IMPRESSION: * There is cholelithiasis including a large nearly 4 cm stone in the gallbladder neck. Gallbladder wall thickening and mild gallbladder distention is findings could certainly be compatible with cholecystitis from a CT imaging standpoint. * Scattered sigmoid colonic diverticula without evidence of diverticulitis. Fleischner guidelines were followed. Chest X-Ray 01/02/22 03:10 IMPRESSION: Unremarkable examination. Abdomen Ultrasound 01/02/22 05:35 IMPRESSION: Findings compatible with acute calculus cholecystitis. Additional Comments Additional comments: Laboratory Results WBC 10.4 X10*3/uL (4.8-10.8) 01/02/22 02:40 RBC 4.21 X10*6/uL (4.20-5.50) 01/02/22 02:40 Hgb 13.7 g/dl (12.0-16.0) 01/02/22 02:40 Hct 38.9 % (37.0-47.0) 01/02/22 02:40 MCV 92.4 fL (80.0-98.0) 01/02/22 02:40 MCH 32.5 pg (27.0-33.0) 01/02/22 02:40 MCHC 35.2 g/dl (31.0-35.0) H 01/02/22 02:40 RDW 12.2 % (11.0-16.0) 01/02/22 02:40 Plt Count 288 X10*3/uL (160-400) 01/02/22 02:40 MPV 9.7 fL (9.4-12.3) 01/02/22 02:40 Immature Gran % (Auto) 0.3 % (0.0-0.4) 01/02/22 02:40 Neut % (Auto) 84.5 % (45-73) H 01/02/22 02:40 Lymph % (Auto) 8.8 % (20-40) L 01/02/22 02:40 [place] % (Auto) 5.7 % (2-11) 01/02/22 02:40 Eos % (Auto) 0.4 % (0-4) 01/02/22 02:40 Baso % (Auto) 0.3 % (0-2) 01/02/22 02:40 Lymph # (Auto) 0.9 X10*3/uL (1.2-4.9) L 01/02/22 02:40 [place] # (Auto) 0.6 X10*3/uL (0.1-1.2) 01/02/22 02:40 Eos # (Auto) 0.0 X10*3/uL (0.0-0.4) 01/02/22 02:40 Baso # (Auto) 0.0 X10*3/uL (0.0-0.2) 01/02/22 02:40 Abs Immat Gran (auto) 0.03 X10*3/uL (0.00-0.03) 01/02/22 02:40 Absolute Neuts (auto) 8.8 x10*3/uL (2.0-8.3) H 01/02/22 02:40 Absolute Nucleated RBC 0.000 X10*3/uL (0.0-0.012) 01/02/22 02:40 Nucleated RBC % (auto) 0.0 /100WBC (0.0-0.2) 01/02/22 02:40 PT 11.7 SEC (9.9-13.0) 01/02/22 02:40 INR 1.0 (0.9-1.1) 01/02/22 02:40 APTT 35.1 SEC (24.1-38.0) 01/02/22 02:40 APTT Cancelled 01/02/22 02:40 Sodium 137 mmol/L (135-145) 01/02/22 03:37 Potassium 4.9 mmol/L (3.3-5.1) 01/02/22 03:37 Chloride 109 mmol/L (96-108) H 01/02/22 03:37 Carbon Dioxide 19 mmol/L (22-29) L 01/02/22 03:37 Anion Gap 14 (12-20) 01/02/22 03:37 BUN 15 mg/dL (9-16) 01/02/22 03:37 Creatinine 0.94 mg/dL (0.5-1.4) 01/02/22 03:37 Estim Creat Clear Calc 48.5 01/02/22 03:37 Estimated GFR 58 01/02/22 03:37 POC Glucose 199 mg/dL (60-115) H 01/02/22 19:58 Random Glucose 196 mg/dL (60-115) H 01/02/22 03:37 Lactic Acid 0.4 mmol/L (0.5-2.0) L 01/02/22 05:04 Calcium 8.1 mg/dL (8.4-10.2) L 01/02/22 03:37 Total Bilirubin 0.7 mg/dL (0.0-1.0) 01/02/22 03:37 AST 21 U/L (5-31) 01/02/22 03:37 ALT 15 U/L (0-31) 01/02/22 03:37 Alkaline Phosphatase 58 U/L (39-117) 01/02/22 03:37 Troponin I High Sens 5.9 ng/L (<3.5-17.0) 01/02/22 02:40 Total Protein 6.6 g/dL (6.5-8.0) 01/02/22 03:37 Albumin 3.6 g/dL (3.5-5.0) 01/02/22 03:37 Lipase 13 U/L (8-78) 01/02/22 03:37 Urine Color YELLOW 01/02/22 11:28 Urine Appearance CLEAR 01/02/22 11:28 Urine pH 6.0 (5.0-8.0) 01/02/22 11:28 Ur Specific [place] 1.020 (1.005-1.025) 01/02/22 11:28 Urine Protein NEG MG/DL (NEG-TRACE) 01/02/22 11:28 Urine Glucose (UA) 500 MG/DL (NEG) H 01/02/22 11:28 Urine Ketones 5 MG/DL (NEG) 01/02/22 11:28 Urine Blood TRACE (NEG) 01/02/22 11:28 Urine Nitrite POS (NEG) H 01/02/22 11:28 Ur Leukocyte Esterase NEG (NEG) 01/02/22 11:28 Urine RBC 0-2 /HPF (0) 01/02/22 11:28 Urine WBC 0-2 /HPF (0-4) 01/02/22 11:28 Ur Squamous Epith Cells 1+ /LPF 01/02/22 11:28 Urine Bacteria 3+ /LPF 01/02/22 11:28 COVID-19 (YANI) Negative (Negative) 01/02/22 09:59 COVID-19 Clin Com See Note 01/02/22 09:59 Impressions Abdomen/Pelvis CT 01/02/22 03:08 IMPRESSION: * There is cholelithiasis including a large nearly 4 cm stone in the gallbladder neck. Gallbladder wall thickening and mild gallbladder distention is findings could certainly be compatible with cholecystitis from a CT imaging standpoint. * Scattered sigmoid colonic diverticula without evidence of diverticulitis. Fleischner guidelines were followed. Chest X-Ray 01/02/22 03:10 IMPRESSION: Unremarkable examination. Abdomen Ultrasound 01/02/22 05:35 IMPRESSION: Findings compatible with acute calculus cholecystitis. Discharge Plan Discharge Patient Disposition: Home, Self-Care Discharge Diagnosis: status post laparoscopic cholecystectomy for acute cholecystitis Referrals: Mckenna Doshi NP [Primary Care Provider] - 1 Week Awais Ribera MD [Physician] - 1 Week Discharge Medications: New oxycodone-acetaminophen [Percocet] 5-325 mg tablet 1 tab PO Q4-6H PRN (Reason: pain, severe) Qty: 30 0RF Rx Instructions: Partial Fill upon patient request. Continued citalopram 10 mg tablet 1 tab PO DAILY levothyroxine 50 mcg tablet 1 tab PO QAM simvastatin 20 mg tablet 1 tab PO BEDTIME omeprazole 20 mg capsule,delayed release(DR/EC) 1 cap PO DAILY losartan 100 mg tablet 1 tab PO BEDTIME metformin 750 mg tablet extended release 24 hr 1 tab PO QPM hydrochlorothiazide 12.5 mg tablet 1 tab PO DAILY aspirin 81 mg Tablet,Chewable 81 mg PO DAILY magnesium 250 mg Tablet 250 mg PO DAILY cholecalciferol (vitamin D3) 50 mcg (2,000 unit) Tablet 50 mcg PO TU@0900 Discharge Orders: Discharge Order (Routine); Ordered 01/03/22 Ordered By: Monroe Lopez Diet: advance to usual diet Activity on Discharge: No heavy lifting Stand Alone Forms: Patient Portal Discharge page Activity Restrictions/Additional Instructions: If the incision area is tender, you may apply an ice pack for short intervals (No more than 20 minutes on, followed by at least 20 minutes off). Do not apply heat. Do not use creams, lotions, or topical antibiotics unless instructed to do so by your surgeon. These can cause infection or allergic reaction. OK to shower OK to change dressings with Bandaids No lifting more than 20 lbs No strenuous activities Call the office for follow-up in 2 weeks - with Dr. Ribera Call Your Doctor If: -Your temperature exceeds 101.5? F -You experience excessive pain or swelling -You have an unexpected reaction to medication -You have excessive bleeding -You experience continued vomiting/nausea -Your incision begins to separate -Your incision shows signs of infection such as increased redness, swelling, excessive pain, drainage (light blood or clear fluid is normal) or heat Care Plan Goals: Return to normal activity and diet Health Concerns: abdominal pain, gallstones Plan of Treatment: Laparoscopic cholecystectomy on 01/02/2022 Assessment: Acute cholecystitis Discharge Date/Time: 01/03/22 13:55
== END 2022-01-03 13:55 | disposition home or self-care (01) | DRG 418 ==
LOC: HO.ED 07:22 → HO.EDOVER 07:41 → HO.S3 13:06
PROVIDERS: Admitting Provider Surgery; Emergency Provider Internal Medicine; PCP Nurse Practitioner Family; Visit Provider Surgery
PROC: 0FT44ZZ Resection of Gallbladder, Percutaneous Endoscopic Approach (ICD-10-PCS; CPT 47562; principal; 2022-01-02 14:10)
DX: K80.00 Calculus of gallbladder with acute cholecystitis without obstruction (principal); K82.1 Hydrops of gallbladder; I10 Essential (primary) hypertension; Z20.822 Contact with and (suspected) exposure to COVID-19; Z87.442 Personal history of urinary calculi; Z79.890 Hormone replacement therapy; Z79.899 Other long term (current) drug therapy
CPT/HCPCS: 47562; 36415; 71045; 74176; 76705; 80053; 81001; 82947; 83605; 83690; 84484; 85025; 85610; 85730; 87040; 87086; 87088; 87186; 87635; 88304; 93005; 96361; 96365; 96375; 96376; 99285; J1100; J1170; J2270; J2405; J2543; J2795; J3010

== ENCOUNTER 2024-11-21 13:05 | Outpatient (REF) | payer MEDICARE, SELFPAY ==
--- NOTE | ~2024-11-21 | US_ITS ---
EXAMINATION: US TRIPLEX LOWER EXTREMITY, RIGHT CLINICAL INFORMATION: Pain, right lower extremity. COMPARISON: None available. TECHNIQUE: Color-flow triplex imaging with spectral analysis and compression Doppler were performed on the right lower extremity. FINDINGS: Respiratory variation, normal compression and augmented flow are present throughout the interrogated common femoral vein, superficial femoral vein, profunda femoral vein, popliteal vein and midcalf peroneal and posterior tibial venous segments . There is a 3.7 x 2.1 cm lobulated anechoic abnormality in the popliteal fossa without flow on color Doppler interrogation. US/US venous duplex LE RT IMPRESSION: No acute deep venous thrombosis involving the right lower extremity. Negative for DVT. 3.7 cm popliteal cyst. Electronically signed by: Mulugeta Rivas MD 11/22/2024 03:24 PM EDT
--- OUTSIDE RECORDS SUMMARY | 2024-11-21 15:06 | XMS_ITS | Encounter Summary ---
Author Organization [facility] Address [address] [place] [address] Phone Care Team Providers Care Antique Jewelry Repairer Name Role Phone Mckenna Doshi NP Primary Care Provider [phone] Roshan Jarvis OD Unavailable [phone] Moi Patton MD Primary Care Provider [phone] Noé Richmond PA-C Primary Care Provider [phone] Encounter Details Date Type Department Care Team (Late Contact Info) Description 01/16/2021 Procedure Pass [facility], [address] [address] Social History Tobacco Use Types Packs/Day Years Used Date Smoking Tobacco: Never Smokeless Tobacco: Never Alcohol Use Standard Drinks/Week Comments No 0 (1 standard drink = 0.6 oz pur e alcohol) Sex and Gender Information Value Date Recorded Sex Assigned at Not on file Gender Identity Not on file Sexual Orientation Not on file documented as of this encounter Plan of Treatment Upcoming Encounters Date Type Department Care Team (Late Contact Info) Description 02/27/2025 8:40 AM EDT Appointment [facility] Internal Medicine [address] [place], [place] [id number] Noé Richmond PA-C [address] [place] [address] documented as of this encounter Visit Diagnoses Not on filedocumented in this encounter Additional Health Concerns Assessment Noted Time PHQ-2 Depression Total Score: 0 11/07/19 21 8:27 AM EDT documented as of this encounter Care Teams Antique Jewelry Repairer Relationship Specialty Start Date End Date Mckenna Doshi NP PCP - General Family Medicine 10/25/17 09/26/23 Moi Patton MD [address] [place] [id number] PCP - General Internal Medicine 09/27/23 05/22/24 Noé Richmond PA-C [address] [place] [id number] PCP - General Physician Manager Stone 05/23/24 Roshan Jarvis OD Optometry 09/05/19 documented as of this encounter Additional Source Comments The information contained in this document represents components of the legal health record. It is not the complete legal health record.[facility]
--- OUTSIDE RECORDS SUMMARY | 2024-11-21 15:06 | XMS_ITS | Clinical Summary ---
Author Organization [facility] Address [address] [facility] [address] [place] [address] Phone Care Team Providers Care Manager Mining Name Role Phone Roshan Jarvis OD Unavailable Noé Richmond PA-C Primary Care Provider [phone] Allergies Active Allergy Reactions Criticality Noted Date Comments Lisinopril Itching,Cough 08/05/2017 Olmesartan Rash Low 08/05/2017 Medications Medication Sig Dispensed Refills Start Date End Date Status aspirin 81 mg chewable tablet Take 81 mg by mouth daily. Active FREESTYLE LITE METER meter kitIndications:Ty pe 2 diabetes mellitus without complications Use as instructed 1 each 1 10/21/19 19 Active Additional Information Patient taking differently: 1 each Every morning, Use as instructed, Reported on 02/01/2019 MAGNESIUM OXIDE ORAL Take 250 mg by mouth daily. Active lancets 28 gauge MiscIndications:T ype 2 diabetes mellitus without complications 1 each by Percutaneous route 2 (two) times a day. 200 each 3 02/29/20 19 Active Additional Information Patient taking differently:1 each PercutaneousEvery morning, Reported on 04/15/2022 cholecalciferol (VITAMIN D3) 5,000 unit tablet Take 1 tablet (5,000 Units total) by mouth once a week. 11/05/19 22 Active colestipol (COLESTID) 1 gram tablet Take 1 tablet by mouth daily. 05/26/20 22 Active levothyroxine (SYNTHROID, LEVOTHROID) 50 MCG tabletIndications :Acquired hypothyroidism Take 1 tablet (50 mcg total) by mouth every morning. 90 tablet 3 12/21/19 24 Active simvastatin (ZOCOR) 20 MG tabletIndications :Mixed hyperlipidemia take 1 tablet by mouth nightly at bedtime 90 tablet 3 01/13/20 24 Active hydroCHLOROthiazi de 25 MG tabletIndications :Essential hypertension take one tablet by mouth every day 90 tablet 3 04/18/20 24 Active FREESTYLE LITE Strp stripsIndications :Type 2 diabetes mellitus without complications 1 each by See Administration Instructions route 2 (two) times a day. 200 strip 3 07/13/20 24 Active metFORMIN (GLUCOPHAGE-XR) 500 MG 24 hr tabletIndications :Type 2 diabetes mellitus without complication, without long-term current use of insulin Take 2 tablets (1,000 mg total) by mouth daily with dinner. 180 tablet 3 07/17/20 24 Active losartan (COZAAR) 100 MG tabletIndications :Essential hypertension Take 1 tablet (100 mg total) by mouth every morning. 90 tablet 3 09/22/19 25 Active omeprazole (PRILOSEC) 20 MG capsuleIndication s:GERD (gastroesophageal reflux disease) TAKE ONE CAPSULE BY MOUTH EVERY DAY 90 capsule 3 11/17/19 25 Active omeprazole (PRILOSEC) 20 MG capsuleIndication s:GERD (gastroesophageal reflux disease) Take 1 capsule (20 mg total) by mouth daily. 90 capsule 3 11/22/19 24 025 Discontinued Active Problems Problem Noted Date Diagnosed Date Right leg pain 11/21/2024 Assessment & Plan (11/21/2024 12:41 PM EDT): Patient noted to have right leg pain with noted varicose veins with a palpable cord in the right lateral aspect of the cruz distally. I will obtain an ultrasound of the right lower extremity to rule out DVT. Annual physical exam 05/23/2024 Bradycardia 05/23/2024 Assessment & Plan (11/21/2024 12:41 PM EDT): Patient underwent a Holter monitor which noted second-degree Mobitz 1 AV block and therefore was referred to cardiology. However they felt that she did not require a pacemaker. The echocardiogram results indicate an ejection fraction of 60% to 65%, which is within the normal range.There is grade 2 diastolic impairment and mild concentric left ventricular hypertrophy (LVH), likely due to a history of high blood pressure. The right ventricle size and function are normal, with a trileaflet aortic valve and no evidence of aortic stenosis. The ascending aortic root is normal. There is mild mitral and tricuspid insufficiency, and the pulmonary arterial pressure is mildly elevated. The low heart rate is likely due to conduction issues rather than structural abnormalities. - Second opinion with [facility] cardiology Dr. Bowers referral placed Assessment & Plan (08/22/2024 10:21 AM EST): Patient with continued episodes of bradycardia noted today to have a heart rate of 41. She is asymptomatic. She has been seen by cardiology who has referred her to sleep medicine to rule out sleep apnea she has an appointment scheduled on 09/21. I will also obtain a Lyme panel to ensure that the underlying cause is not secondary to Lyme disease. If her Lyme titer comes back positive I will treat with doxycycline. 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 Will obtain a repeat TSH level. Assessment & Plan (08/22/2024 10:21 AM EST): Patient is on levothyroxine 50 mcg daily. We will obtain a repeat TSH level. Assessment & Plan (01/19/2024 11:16 AM EDT): No clinical signs of hypothyroidism check TSH free T4, previously TSH was a little bit elevated with normal free T4. Since she is subclinical for thyroid if a similar picture we will just continue to follow in 6 months. Psychophysiological insomnia 11/06/2020 Assessment & Plan (08/01/2024 12:47 PM EST): For this and probable undiagnosed sleep apnea am going to send her to our sleep medicine physicians Trigger middle finger of right hand 12/06/2019 Assessment & Plan (11/21/2024 12:41 PM EDT): Patient noted to have a right middle finger trigger finger therefore we will refer to [facility] for cortisone injection. RBBB 08/11/2018 GERD (gastroesophageal reflux disease) 8 Mixed hyperlipidemia 08/05/2017 Assessment & Plan (11/21/2024 12:41 PM EDT): Patient's last lipid panel back in July 2024 revealed an LDL of 80. Patient to continue simvastatin 20 mg nightly we will repeat a lipid panel Assessment & Plan (08/22/2024 10:22 AM EST): Patient is on Zocor 20 mg p.o. daily we we will repeat a lipid panel. Her last lipid panel was noted to be within normal limits back in April 2024. Assessment & Plan (01/19/2024 11:18 AM EDT): Check lipid profile and AST ALT, continue simvastatin and make adjustments according to results. Low-fat diet suggested. Type 2 diabetes mellitus wit hout complication, without long-term current use of insulin 08/05/2017 Assessment & Plan (11/21/2024 12:41 PM EDT): Patient with a history of diabetes with her last hemoglobin A1c being 7.0. She checks her blood sugars at home which have been ranging in the 130s 140s. Of note she is on metformin at 1000 mg p.o. twice daily. We had a further discussion with regards to diet and exercise now that is nicer out she will start exercising more outside. However her diet has been not so well-controlled. She tells me that there are often times where she does not eat a full meal until about 3:00 in the afternoon. I did express the importance of eating 3-5 small meals per day. She stated that she will most likely start doing this as I did explain that if she only consumes 1 meal per day her body is likely to go into starvation mode and then hold onto anything and stored as fat which could precipitate higher numbers and as well as gaining weight. -She will continue to diet and exercise -Continue metformin at 1000 mg p.o. twice daily -Repeat hemoglobin A1c Assessment & Plan (08/22/2024 10:22 AM EST): Her last hemoglobin A1c was noted at 7.1 back in April 2024 she is maintained on metformin. We will continue metformin 1000 mg daily and repeat a hemoglobin A1c Assessment & Plan (01/19/2024 11:17 AM EDT): Check hemoglobin A1c, consistently it has been around high 6% to 7% but never above 7.5%. Will continue to follow every 6 months if that is the case. Continue metformin. Essential hypertension 08/05/2017 Assessment & Plan (11/21/2024 12:41 PM EDT): Well-controlled on losartan 100 mg p.o. daily and hydrochlorothiazide 25 mg daily Assessment & Plan (08/22/2024 10:22 AM EST): Well-controlled on hydrochlorothiazide 25 mg daily and Cozaar 100 mg daily Assessment & Plan (08/01/2024 12:47 PM EST): Well-controlled at this time Assessment & Plan (01/19/2024 11:16 AM EDT): Hypertension well controlled with current listed antihypertensives. Denies side effects No change to dosing. Low Sodium diet reinforced. Continue to monitor condition. Check electrolytes kidney function. Resolved Problems Problem Noted Date Diagnosed Date Resolved Date Acquired hammer toe of left foot 04/15/2022 11/21/2024 Grieving 02/01/2019 11/21/2024 Assessment & Plan (01/19/2024 11:18 AM EDT): Such as citalopram was thought to be for the grieving process that has now been concluded. Trial of patient off of 10 mg citalopram over the next 4 months and will discuss with her on the physical how she is doing off of it. Encounters Date Type Department Care Team Description 11/21/2024 10:20 AM EDT Office Visit [facility] Internal Medicine [address] [place] [address] Noé Richmond PA-C Mixed hyperlipidemia (Primary Dx); Acquired hypothyroidism; Type 2 diabetes mellitus without complication, without long-term current use of insulin; Right leg pain; Essential hypertension; Trigger middle finger of right hand; Bradycardia 11/16/2024 Refill [facility] Internal Medicine [address] [place] [address] Moi Patton MD Medication Refill 09/26/2024 10:11 AM EST - 09/26/2024 11:59 PM EST Hospital Encounter Echo Lab [address] [place], [place] [id number] Misael Jacobs, Discharge Disposition: Home or Self Care 09/22/2024 Refill [facility] Internal Medicine [address] [place] [address] Noé Richmond PA-C Medication Refill 09/21/2024 11:15 AM EST Office Visit [facility] [address] [place] [address] Dr [address] Floor, [address] [place], [place] [id number] Coleman Butler MD Psychophysiological insomnia (Primary Dx); VASQUEZ (obstructive sleep apnea); RLS (restless legs syndrome) 08/24/2024 Telephone [facility] Internal Medicine [address] [place] [address] Cece Pitts RN Results 08/01/2024 Procedure Pass Echo Lab [address] [place] [address] from Last 3 Months Immunizations Name Administration Dates Next Due COVID-19 (Pre-05/17) Pfizer Vaccine, mRNA, PF 04/29/2021,10/07/2020,09/14/2020 DT 12/28/2005 Influenza High-Dose Quadriva lent Preservative Free IM 04/14/2023,04/01/2021 Influenza High-Dose Trivalen t Preservative Free IM 04/05/2017,05/07/2016,05/04/2015,04/21 Influenza Quadrivalent Prese rvative Free IM 05/27/2022 Influenza Trivalent Adjuvant ed Preservative free IM 04/26/2024,03/23/2019 Influenza Trivalent Preserva tive Free IM 03/22/2020,2018,04/05/2017 Influenza Trivalent w/ Preservative IM 4,06/07/2012,07/29/2011 Influenza, Unspecified Formulation 03/14,2018,05/19/2010,05/16 Pneumococcal conjugate PCV13 06/25/2015 Pneumococcal polysaccharide PPSV23 06/07/2012 RSV Vaccine (bivalent) 08/31/2024 Tdap 05/25/2024,10/27/2013 Zoster live 07/11/2009 Zoster recombinant 06/05/2020 Family History Medical History Relation Comments Pacemaker Brother 1 Prostate cancer Brother 1 Pacemaker Brother 2 Diabetes Daughter Cancer Father Pancreatic cancer Father Breast cancer Maternal Cousin CV disease Mother Diabetes mellitus Mother Cancer Sibling 1 Diabetes mellitus Sibling 1 Hypertension Sibling 1 Hypertension Sister 1 Breast cancer Sister 2 Cancer Sister 2 Diabetes Sister 3 Hypertension Sister 3 Pacemaker Sister 3 Hypertension Son 1 Thyroid disease Son 1 No Known Problems Son 2 Relation Status Comments Brother 1 Alive Brother 2 Alive Daughter Alive Father Maternal Cousin Mother Sibling 1 Sibling 2 Sibling 3 Sister 1 Alive Sister 2 Sister 3 Alive Sister 4 Alive Son 1 Alive Son 2 Alive Social History Tobacco Use Types Packs/Day Years Used Date Smoking Tobacco: Never Smokeless Tobacco: Never Tobacco Cessation:Counseling Given: Not Answered Alcohol Use Standard Drinks/Week Comments No 0 (1 standard drink = 0.6 oz pur e alcohol) Education Answer Date Recorded Are you interested in more education? Not on ann e 11/20/2022 Are you concerned about learning? Not on file 11/20/2022 No 11/20/2022 No 11/20/2022 Digital Access Answer Date Recorded No 12/18/2022 No 12/18/2022 Reliable internet access at home? Not on file 12/18/2022 Device with a working camera? Not on file Intimate Partner Violence Answer Date R ecorded Denied Basic Needs Not on file 05/23/2024 In the past 12 months have y ou been in a relationship with a person who hurts, threatens, or tries to control you? No 05/23/2024 Worried food would run out Not on file 05/23 In the past 12 months have y ou been in a relationship with a person who hurts, threatens, or tries to control you? No 05/23/2024 Sex and Gender Information Value Date Recorded Sex Assigned at Not on file Gender Identity Not on file Sexual Orientation Not on file Last Filed Vital Signs Vital Sign Reading Time Taken Comments Blood Pressure 134/54 11/21/2024 10:37 AM EDT Pulse 67 11/21/2024 10:37 AM EDT Temperature 35.9 ??C (96.7 ??F) 05/23/2024 8:57 AM ED T Respiratory Rate 18 11/21/2024 10:37 AM EDT Oxygen Saturation 98% 11/21/2024 10:37 AM EDT Inhaled Oxygen Concentration - - Weight 77.7 kg (171 lb 3.2 oz) 11/21/2024 10:37 AM EDT Height 152.3 cm (4' 11.96 ) 11/21/2024 10:37 AM EDT Body Mass Index 33.48 11/21/2024 10:37 AM EDT Plan of Treatment Upcoming Encounters Date Type Department Care Team (Late st Contact Info) Description 02/27/2025 8:40 AM EDT Appointment [facility] [place] Internal [facility] [address] [place] [address] Noé Richmond PA-C [address] [place] [address] [email or web address] Health Maintenance Due Date Last Done Comments COLOGUARD 1990 FIT TEST 1990 FOBT 1990 SIGMOIDOSCOPY 1990 VIRTUAL COLONOSCOPY 1990 ZOSTER VACCINES (3 of 3) 07/31/2020 06/05/2020, 06/25 HEMOGLOBIN A1C 02/19/2025 08/22/2024, 04/26, 01/19/2024, Additional history exists BLOOD PRESSURE 05/23/2025 11/21/2024 CREATININE LEVEL 05/23/2025 05/23/2024, , 04/13/2023, Additional history exists DEPRESSION SCREENING 05/23/2025 05/23/2024 POTASSIUM LEVEL 05/23/2025 05/23/2024, 12/25, 04/13/2023, Additional history exists DIABETIC EYE EXAM 07/03/2025 07/03/2024, , 01/15/2021, Additional history exists TSH LEVEL 08/22/2025 08/22/2024, 04/26, 01/19/2024, Additional history exists COLONOSCOPY 09/16/2027 09/16/2022, 07/13/2012 COLORECTAL CANCER SCREENING 09/16/2027 Adult Td,Tdap Booster 05/25/2034 05/25/2024, 014 PNEUMOCOCCAL VACCINES (50+ years) Completed 06/25/2015, 06/07/2012 HEPATITIS C SCREENING Completed 02/28/2020 OSTEOPOROSIS SCREENING INITIAL (ONE-TIME) Completed 03/05/2021, 11/02/2018, 11/17/2013 COVID-19 VACCINE Completed 05/11/2024, , 06/05/2022, Additional history exists RSV VACCINE Completed 08/31/2024 SMOKING STATUS SCREENING (Once After 26 Yrs) Completed 11/21/2024 HEPATITIS A VACCINES Aged Out No long er eligible based on patient's age to complete this topic HIB VACCINES Aged Out No longer eligi ble based on patient's age to complete this topic MENINGOCOCCAL VACCINES (ACWY) Aged Out No longer eligible based on patient's age to complete this topic Medical Devices Not on file Procedures Procedure Name Priority Date/Time Associated Diagnosis Comments US LOWER EXTREMITY VEINS DUPLEX (RIGHT) STAT 11/21/2024 11:13 AM EDT Right leg pain TTE COMPREHENSIVE Routine 09/26/2024 10: 47 AM EST Shortness of breath HEMOGLOBIN A1C Routine 08/22/2024 10:11 AM EST Type 2 diabetes mellitus without complication, without long-term current use of insulin TSH WITH REFLEX Routine 08/22/2024 10:11 AM EST Acquired hypothyroidism DIABETES EYE EXAM FOR RESULT ENTRY ONLY Routine 07/03/2024 3:47 PM EST COMPREHENSIVE METABOLIC PANEL Routine 05/23/2024 11:11 AM EDT Annual physical exam COLONOSCOPY FOR RESULT ENTRY ONLY Routine 09/16/2022 BD DXA AXIAL (SPINE) WITH HIP Routine 03/05/2021 10:25 AM EDT Post-menopausal HEPATITIS C ANTIBODY, QUALITATIVE Routine 02/28/2020 8:55 AM EDT Medicare annual wellness visit, subsequent from Last 3 Months or Most Recently Relevant to Health Maintenance Results * (ABNORMAL) TTE COMPREHENSIVE (09/26/2024 10:47 AM EST) Height 152 cm Weight 78 kg Systolic BP 130 mmHg Diastolic BP 61 mmHg Interventricular Septum Thickness 12 6 - 11 mm Left Ventricle Internal Diameter End Diastole 44 37 - 52 mm Left Ventricle Internal Diameter End Systole 29 <35 mm Left Ventricular Outflow Tract Diameter 19.0 mm Left Ventricular Posterior Wall Thickness 12 6 - 11 mm Ejection Fraction 72 50 - 75 Percent Left Atrium Dimension Anterior-Posterior 38 15 - 40 mm Aortic Valve Mean Gradient 5 mmHg Aortic Valve Time Velocity Integral 392.0 mm Aortic Valve Peak Velocity 155.0 cm/s Aortic Valve Peak Gradient 10 mmHg Aortic Sinus Diameter 33 <40 mm Ascending Aorta Diameter 33(A) <36 mm Inferior Vena Cava Diameter 12 <21 mm Mitral Valve Deceleration Time 246 ms Mitral Valve A Wave Speed 106.0 cm/s Mitral Valve E Wave Speed 91.7 cm/s Right Ventricle Basal Diameter 33 25 - 41 mm Tricuspid Valve Peak Velocity 3.0 m/s Raw LV EF% 57 % Relative Wall Thickness 0.55 0.22 - 0.42 Aortic Valve Prosthetic Peak Gradient 10 mmHg Aortic Valve Prosthetic Mean Gradient 5 mmHg Aorta Sinus Index by Height 2.17 cm/m Aorta Sinus CSA index by Height 5.62 cm2/m Asc Aorta CSA Index by Height 5.62 cm2/m Right Ventricle to Right Atrium Pressure Gradient 36 mmHg Right Ventricle Peak Systolic Pressure (Assuming RAP 10) 46 mmHg MGB CV ECHO TV RVSP (ASSUMING RAP OF 5) 41 mmHg RVSP (Exclusive of RAP) 36 mmHg Body Surface Area 1.75 m2 Left Atrial Volume Index 24 16 - 34 mL/m2 Right Ventricle Peak Systolic Pressure 39 mmHg Left Ventricle Ea Lateral Wave Speed 6.0(A) cm/s MV E/E' Tissue Velocity Lateral 15.33 Aortic Valve Peak Velocity 1.6 m/s Left Ventricle E Wave Speed 92.0 cm/s Left Ventricle A Wave Speed 106.0 cm/s MV E/A ratio 0.9 Left Ventricle Ea Septal Wave Speed 5.8(A) cm/s MV E/e' septal 15.86 Left Ventricle E/e' Average 15.6(A) Left Atrial Volume 42 mL Left Atrial Volume Index by Height 28 mL/m Right Atrium Area 11 cm2 Right Atrium Area index 6 cm2/m2 Aortic Valve Sinus Index by BSA 19 mm/m2 Ascending Aorta Index 19(A) mm/m2 Right Atrium Pressure Estimated 3 mmHg Ascending Aorta Index 19 mm Aortic Sinus Index 19 mm Ascending Aorta Diameter 19 mm Aortic Valve Sinus Index 1 19 19 - 27 mm AO ASC DIAM BSA INDEX 18.86 Echo E/Ea 15.86 GLS 20.0 % Anatomical Region Laterality Modality Heart Ultrasound Narrative 09/27/2024 9:08 AM EST Images from the original result were not included. 1. ??Image quality is good on the study. ??The estimated ejection fraction is 60 to 65%. ??The strain on the study is normal at -20%. ??There is grade 2 diastolic impairment and mild concentric LVH. ??There are no regional wall motion abnormalities. 2. ??Normal RV size and function. 3. ??Trileaflet aortic valve there is no evidence of aortic stenosis, the ascending aortic root is normal. 4. ??Mild mitral and tricuspid insufficiency, the PA pressure is mildly elevated at 35 to 40 mmHg. 5. ??Normal pericardium and there is no prior echo available for comparison. Left Ventricle The left ventricle is normal in size. There is mild concentric hypertrophy. There is normal left ventricular systolic function. The LV ejection fraction is 60-65% (visually estimated). Average global longitudinal strain (GLS) is -20.0%, as measured on [employer] software platform. There is abnormal diastolic function. There is Grade II diastolic dysfunction. Right Ventricle The right ventricle is normal in size. There is normal right ventricular systolic function. Left Atrium The left atrium is normal in size. Right Atrium The right atrium is normal in size. The IVC is normal in size. Mitral Valve There is mitral valve thickening. There is no mitral stenosis. There is mild mitral regurgitation. Tricuspid Valve The tricuspid valve appears normal. There is no tricuspid stenosis. There is mild tricuspid regurgitation. The RV systolic pressure was calculated at 39 mmHg (using TR peak velocity of 3.0 m/s and assuming an RA pressure of 3 mmHg). Aortic Valve The aortic valve is tricuspid. There is leaflet thickening. There is no aortic stenosis. There is trace to mild aortic regurgitation. The aortic sinus diameter is 33 mm. The aortic sinus index by BSA is 19 mm/m2. The ascending aorta is dilated. The ascending aortic diameter is 33 mm. The ascending aorta index by BSA is 19 mm/m2. Pulmonic Valve The pulmonic valve appears normal. There is no pulmonic stenosis. There is trace pulmonic regurgitation. Pericardium The pericardium appears normal. There is no pericardial effusion. General Findings The image quality was good (2). Strain performed. Technique(s) used in the evaluation: Multiplane, Color flow Doppler, Spectral Doppler and Epiaortic scan. Comparison Findings There are no prior studies for comparison. IAS/IVS The interatrial septum appears normal. The interventricular septum appears normal. Misael Jacobs DO CV ECHO ORDERABLES * TSH with reflex (08/22/2024 10:11 AM EST) TSH 2.50 0.27 - 4.20 uIU/mL [facility] Blood 08/22/2024 10:1 1 AM EST 08/22/2024 10:17 AM EST Noé Richmond PA-C LAB BLOOD ORDERABLES [address] [address] * (ABNORMAL) Hemoglobin A1c (08/22/2024 10:11 AM EST) HEMOGLOBIN A1C 7.0(H) 4.3 - 5.8 % [facility] Blood 08/22/2024 10:1 1 AM EST 08/22/2024 10:17 AM EST Noé Richmond PA-C LAB BLOOD ORDERABLES [address] [address] * DIABETES EYE EXAM FOR RESULT ENTRY ONLY (07/03/2024 3:47 PM EST) Historical Provider MD CRISTAL Carrillo * (ABNORMAL) Comprehensive metabolic panel (05/23/2024 11:11 AM EDT) SODIUM 138 133 - 146 mmol/L [facility] POTASSIUM 4.0 3.3 - 5.1 mmol/L [facility] CHLORIDE 103 96 - 108 mmol/L [facility] CO2 25 21 - 35 mmol/L [facility] BUN 13 6 - 19 mg/dL [facility] CREATININE 0.80 0.5 - 1.5 mg/dL [facility] GLUCOSE 132(H) 70 - 99 mg/dL [facility] ALBUMIN 4.1 3.9 - 4.8 g/dL [facility] TOTAL PROTEIN 7.2 6.5 - 8.0 g/dL [facility] CALCIUM 9.6 8.4 - 10.3 mg/dL [facility] ALKALINE PHOSPHATASE 57 39 - 117 U/L [facility] TOTAL BILIRUBIN 0.6 0.0 - 1.2 mg/dL [facility] AST 21 0 - 37 U/L [facility] ALT 16 0 - 40 U/L [facility] GLOBULIN 3.1 1 - 4.8 g/dL [facility] EGFR 75 >59 mL/min/1.7 3m2 [facility] Comment:Estimated glomerular filtration rate calculated using the CKD-EPI refit equation. ANION GAP 14 10 - 20 mmol/L [facility] Blood 05/23/2024 11:1 1 AM EDT 05/23/2024 11:19 AM EDT Noé Richmond PA-C LAB BLOOD ORDERABLES [facility] [address] [place] [address] * HM COLONOSCOPY FOR RESULT ENTRY ONLY (09/16/2022) Mckenna Doshi NP HEALTH MAINTENANCE * BD DXA AXIAL (SPINE) WITH HIP (03/05/2021 10:25 AM EDT) Anatomical Region Laterality Modality Bone Density Bone Density 03/05/2021 11:4 7 AM EDT Impressions 03/05/2021 11:49 AM EDT Normal lumbar spine and bilateral total hip bone density with minimal decrease in bone density at all 3 sites since 2019. Narrative 03/05/2021 11:49 AM EDT COMPARISON: 11/02/2018. BONE DENSITY FINDINGS: ?? History: ??This is a 75-year-old postmenopausal female. Evaluation of the lumbar spine and hips was performed and felt to be technically adequate. L1-L4 vertebral bodies total bone mineral density was calculated at 1.090 gm/cm2 with a T-score of 0.4 falling within the WHO classification of normal. ??Z-score of ??2.8.2.1% decrease in bone density which is statistically significant. Right femoral neck bone mineral density was calculated at 0.777 gm/cm2 with a T- score of -0.6 falling within the WHO classification of normal. ??Z-score of 1.5. Total Right hip bone mineral density was calculated at 0.980 gm/cm2 with a T- score of ??0.3 falling within the WHO classification of normal. ??Z-score of ??2.1. ??4.8% decrease in bone density which is statistically second. Left femoral neck bone mineral density was calculated at 0.763 gm/cm2 with a T- score of ??-0.8 falling within the WHO classification of normal. ??Z-score of ??1.3. Total Left hip bone mineral density was calculated at 0.961 gm/cm2 with a T- score of ??0.2 falling within the WHO classification of normal. ??Z-score of ??2. ??5.2% decrease in bone density which is statistically significant. Procedure Note Nabil Mcknight MD - 03/05/2021 COMPARISON: 11/02/2018. BONE DENSITY FINDINGS: History: This is a 75-year-old postmenopausal female. Evaluation of the lumbar spine and hips was performed and felt to betechnically adequate. L1-L4 vertebral bodies total bone mineral density was calculated at 1.090gm/cm2 with a T-score of 0.4 falling within the WHO classification ofnormal. Z-score of 2.8.2.1% decrease in bone density which isstatistically significant. Right femoral neck bone mineral density was calculated at 0.777 gm/vf7yeni a T- score of -0.6 falling within the WHO classification of normal.Z-score of 1.5. Total Right hip bone mineral density was calculated at 0.980 gm/cm2 with aT- score of 0.3 falling within the WHO classification of normal. Z-scoreof 2.1. 4.8% decrease in bone density which is statistically second. Left femoral neck bone mineral density was calculated at 0.763 gm/cm2 witha T- score of -0.8 falling within the WHO classification of normal.Z-score of 1.3. Total Left hip bone mineral density was calculated at 0.961 gm/cm2 with aT-score of 0.2 falling within the WHO classification of normal. Z-scoreof 2. 5.2% decrease in bone density which is statisticallysignificant. IMPRESSION: Normal lumbar spine and bilateral total hip bone density with minimaldecrease in bone density at all 3 sites since 2019. Mckenna Doshi NP IMG BD BONE DENSITY DEXA * Hepatitis C antibody, qualitative (02/28/2020 8:55 AM EDT) HCV NON-REACTIV E NON-REACTI VE [facility] Blood 02/28/2020 8:55 AM EDT 02/28/2020 10:49 AM EDT Mckenna Doshi NP LAB BLOOD ORDERABLES [facility] [address] [place] [address] from Last 3 Months or Most Recently Relevant to Health Maintenance Rosio, Radha Personal/Famil y Self [address] [place] [address] Rosio, Radha Personal/Famil y Self [address] [place] [address] Rosio, Radha Personal/Famil y Self [address] [place] [address] Rosio, Radha Personal/Famil y Self [address] [place] [address] Rosio, Radha Personal/Famil y Self [address] [place], [place] [address]aRdha Pond Personal/Famil y Self 1945 [address] [place] [address]Radha Pond Personal/Famil y Self 1945 [address] [place] [address]Radha Pond Personal/Famil y Self 1945 [address] [place] [address] Advance Directives For more information, please contact: [phone] (9AM - 5PM [facility], Wednesday-Wednesday) Documents on File Type Date Recorded Patient Consultant Teacher Expl anation Healthcare Proxy 03/15/2019 Healthcare proxy - signed Healthcare Agents on File Name Relationship Healthcare Agent Relationship Communication Maritza Oakes Daughter Alternate Health care Agent (Proxy form on file) Jr Hunter Avelar Son .Primary H ealth Care Agent (Proxy form on file) Care Teams Manager Mining Relationship Specialty Start Date End Date Noé Richmond PA-C [address] [facility] [place] [address] [email or web address] PCP - General Physician Roll Over Press Operator 05/23/24 Roshan Jarvis OD Optometry 09/05/19 Additional Source Comments The information contained in this document represents components of the legal health record. It is not the complete legal health record.[facility]
--- OUTSIDE RECORDS SUMMARY | 2024-11-21 15:06 | XMS_ITS | Encounter Summary ---
Author Organization [facility] Address [address] [facility] [address] [place] [address] Phone Care Team Providers Care Physiotherapist'S Assistant Name Role Phone Mckenna Doshi NP Primary Care Provider [phone] Roshan Jarvis OD Unavailable [phone] Moi Patton MD Primary Care Provider [phone] Noé Richmond PA-C Primary Care Provider [phone] Encounter Details Date Type Department Care Team (Latest Contact Info) Description 01/16/2021 Transcribe Orders Virtual Department [address] [place], [place] [id number] Mckenna Doshi, STAFF SCIENTIST [address] [place] [address] [email or web address] Breast screening (Primary Dx) Social History Tobacco Use Types Packs/Day Years [...] Info) Description 02/27/2025 8:40 AM EDT Appointment [facility] [address] [place] [address] Noé Richmond PA-C [address] [place] [address] [email or web address] Records documented as of this encounter Results * BI MAMMOGRAM SCREENING WITH TOMOSYNTHESIS WITH CAD (BILATERAL) (03/05/2021 10:41 AM EDT) Anatomical Region Laterality Modality Breast Left, Breast Right, Breast Bilateral Bila teral Mammography 03/05/2021 11:0 0 AM EDT Impressions 03/05/2021 11:03 AM EDT No mammographic evidence of malignancy. ??Recommend routine annual surveillance. BI-RADS CATEGORY: ??2 - Benign finding. DENSITY: ??There are scattered fibroglandular densities. Narrative 03/05/2021 11:03 AM EDT 75-year-old female with no current breast symptoms. ??Comparison made to previous on 02/28/2020 and as far back as 11/20/2014. ??Interpretation made in conjunction with computer-aided detection and tomosynthesis. There are scattered areas of fibroglandular density. Chronic bilateral nodularity and benign calcifications. There are no suspicious masses, areas of architectural distortion, or suspicious clusters of microcalcifications. Procedure Note Nabil Mcknight MD - 03/05/2021 75-year-old female with no current breast symptoms. Comparison made toprevious on 02/28/2020 and as far back as 11/20/2014. Interpretation made inconjunction with computer-aided detection and tomosynthesis. There are scattered areas of fibroglandular density. Chronic bilateralnodularity and benign calcifications. There are no suspicious masses, areas of architectural distortion, orsuspicious clusters of microcalcifications. IMPRESSION: No mammographic evidence of malignancy. Recommend routine annualsurveillance. BI-RADS CATEGORY: 2 - Benign finding. DENSITY: There are scattered fibroglandular densities. Mckenna Doshi STAFF SCIENTIST IMG MG EXAMS documented in this encounter Visit Diagnoses Diagnosis Breast screening- Primary Breast screening, unspecified Breast screening Breast screening, unspecified documented in this encounter Additional Health Concerns Assessment Noted Time PHQ-2 Depression Total Score: 0 11/07/19 21 8:27 AM EDT documented as of this encounter Care Teams Physiotherapist'S Assistant Relationship Specialty Start Date End Date Mckenna Doshi NP PCP - General Family Medicine 10/25/17 09/26/23 Moi Patton MD [address] [place] [address] PCP - General Internal Medicine 09/27/23 05/22/24 Noé Richmond PA-C [address] [place] [address] [email or web address] PCP - General Physician Spacecraft Systems Engineer 05/23/24 Roshan Jarvis OD Optometry 09/05/19 documented as of this encounter Additional Source Comments The information contained in this document represents components of the legal health record. It is not the complete legal health record.[facility]
--- OUTSIDE RECORDS SUMMARY | 2024-11-21 15:06 | XMS_ITS | Encounter Summary ---
Author Organization [facility] Address [address] [place] [address] Phone Care Team Providers Care Cisco Certified Internetwork Expert Name Role Phone Roshan Jarvis OD Unavailable [phone] Noé Richmond PA-C Primary Care Provider [phone] Encounter Details Date Type Department Care Team (Late st Contact Info) Description 05/23/2024 Procedure Pass Non-Invasive Cardiology [address] [place] [address] Social History Tobacco Use Types Packs/Day Years [...] Info) Description 02/27/2025 8:40 AM EDT Appointment [facility] Internal Medicine [address] [place] [address] Noé Richmond PA-C [address] [place] [address] [email or web address] documented as of this encounter Visit Diagnoses Not on filedocumented in this encounter Additional Health Concerns Assessment Noted Time PHQ-2 Depression Total Score: 0 05/23/20 24 9:03 AM EDT documented as of this encounter Care Teams Cisco Certified Internetwork Expert Relationship Specialty Start Date End Date Noé Richmond PA-C [address] [place] [address] PCP - General Physician Airline Mechanic 05/23/24 Roshan Jarvis OD Optometry 09/05/19 documented as of this encounter Additional Source Comments The information contained in this document represents components of the legal health record. It is not the complete legal health record.[facility]
--- OUTSIDE RECORDS SUMMARY | 2024-11-21 15:06 | XMS_ITS | Encounter Summary ---
Author Organization [facility] Address [address] [place] [address] Phone Care Team Providers Care House Mover Name Role Phone Roshan Jarvis OD Unavailable [phone] Noé Richmond PA-C Primary Care Provider [phone] Reason for Visit * Reason Comments Medication Refill Encounter Details Date Type Department Care Team (Late st Contact Info) Description 11/16/2024 Refill [facility] [address] [place], [place] [id number] Moi Patton MD [address] [place], [place] [id number] [email or web address] Medication Refill Social History Tobacco Use Types Packs/Day Years [...] on file documented as of this encounter Progress Notes * Karen Cristina CMA - 11/16/2024 7:48 AM EDT Rx Care Gap Status - Instructions for Clinical Staff (prescriber discretion applies): n/a Visit Info Last visit: 08/22/2024 Noé Richmond PA-C - Internal Medicine [facility] > Requested f/u: Return in about 3 months (around 11/20/2024) for Recheck. Upcoming visit: 11/21/2024 Noé Richmond PA-C - Internal Medicine [facility] ACTIONS TAKEN BY Karen Cristina CMA - No action needed by clinical staff Gastrointestinal Rx Protocol (H2 blockers, PPIs, stool softeners, laxatives) - omeprazole Criteria met; renew for up to 12 months. Visit in the past 24 months: Yes documented in this encounter Plan of Treatment Upcoming Encounters Date Type Department Care Team (Late st Contact Info) Description 02/27/2025 8:40 AM EDT Appointment [facility] Internal Medicine [address] [place] [address] Noé Richmond PA-C [address] [place] [address] [email or web address] documented as of this encounter Visit Diagnoses Diagnosis GERD (gastroesophageal reflux disease) Esophageal reflux documented in this encounter Additional Health Concerns Assessment Noted Time PHQ-2 Depression Total Score: 0 05/23/20 24 9:03 AM EDT documented as of this encounter Care Teams House Mover Relationship Specialty Start Date End Date Noé Richmond PA-C [address] [place] [address] [email or web address] PCP - General Physician Radial Saw Operator 05/23/24 Roshan Jarvis OD Optometry 09/05/19 documented as of this encounter Additional Source Comments The information contained in this document represents components of the legal health record. It is not the complete legal health record.[facility]
--- OUTSIDE RECORDS SUMMARY | 2024-11-21 15:06 | XMS_ITS | Encounter Summary ---
Author Organization [facility] Address [address] [place] [address] Phone Care Team Providers Care Aluminum Molding Machine Operator Name Role Phone Roshan Jarvis OD Unavailable [phone] Moi Patton MD Primary Care Provider [phone] Noé Richmond PA-C Primary Care Provider [phone] Encounter Details Date Type Department Care Team (Late st Contact Info) Description 01/20/2024 Procedure Pass [facility] - [address] [place] [address] Social History Tobacco Use Types Packs/Day Years [...] with a working camera? Not on file Sex and Gender Information Value Date Recorded Sex Assigned at Not on file Gender Identity Not on file Sexual Orientation Not on file documented as of this encounter Plan of Treatment Upcoming Encounters Date Type Department Care Team (Late st Contact Info) Description 02/27/2025 8:40 AM EDT Appointment [facility] Internal Medicine [address] [place] [address] Noé Richmond PA-C [address] [place] [address] documented as of this encounter Visit Diagnoses Not on filedocumented in this encounter Additional Health Concerns Assessment Noted Time PHQ-2 Depression Total Score: 0 05/23/20 9:03 AM EDT documented as of this encounter Care Teams Aluminum Molding Machine Operator Relationship Specialty Start Date End Date Moi Patton MD [address] [place] [address] PCP - General Internal Medicine 09/27/23 05/22/24 Noé Richmond PA-C [address] [place] [address] PCP - General Physician Screw Remover 05/23/24 Roshan Jarvis OD Optometry 09/05/19 documented as of this encounter Additional Source Comments The information contained in this document represents components of the legal health record. It is not the complete legal health record.[facility]
--- OUTSIDE RECORDS SUMMARY | 2024-11-21 15:06 | XMS_ITS | Patient Health Record ---
[facility] Address [address] [place] [address] Care Team Providers Care Certified Adaptive Physical Educator Name Role Phone Moi Patton MD Primary Care Provider Unavailabl e Black, Ly Unavailable [phone] Allergies Allergen (clinical drug ingredient) Drug/Non Drug Allergy documented on EMR Reaction Allergy Type Onset Date Status olmesartan Benicar Unknown Drug Allergy Active Lisinopril itchy Drug Allergy Active Reason For Referral No Information Medications Medication SIG (Take, Route, Frequency, Duration) Notes Start Date End Date Status Omeprazole 20 MG 1 capsule Orally Once a day Active metFORMIN HCl ER 750 MG Orally Active Metoprolol Succinate ER 50 MG 1 tablet Orally Once a day Not-Taking Levothyroxine Sodium 50 MCG Oral for 90 Active Ammonium Lactate 12 % 1 application Externally Twice a day for 30 days Active Extra Depth Orthopedic Shoes (1 Pair) with Customized Heat Molded Multidensity Innersoles (3 Pair) as directed Dx: NIDDM/Polyneuropat hy (E11.42), Hammertoe Foot Deformity (M20.41,M20.42), Preulcerative Skin Lesion(s) (L85.1 08/19/2023 Active Aspirin 81 MG 1 tablet Orally Once a day Active Losartan Potassium 100 MG 1 tablet Orall y Once a day Active Simvastatin 20 MG 1 tablet in the evening Orally Once a day Active Lorazepam PRN Active cloZAPine For Anxiety Active Magnesium 250 MG 1 tablet with a meal Orally Once a day for 30 day(s) Active hydroCHLOROthiazide Active Immunizations Vaccine Route Administration Date Status Comme nts COVID-19 Pfizer BioNTech Vaccine Unknown 05/01/2021 Administered first dose: 09/15 Second dose: 10/13 Influenza Unknown 04/05/2017 Administered Influenza Unknown 2018 Administered Influenza Unknown 03/22/2020 Administered Influenza Unknown 03/31/2021 Administered Social History Tobacco Use: Social History Observation Description Date Details (start date - stop date) Never Smoker NA - NA Tobacco Use/Smoking Question Answer Notes Are you a: nonsmoker Additional Findings: Tobacco Non-User Current no n-smoker Alcohol Screen Question Answer Notes Did you have a drink containing alcohol in the p ast year? No Points 0 Interpretation Negative Tobacco use other than smoking: Question Answer Notes Are you an other tobacco user? No Problems Problem Type SNOMED Code ICD Code Onset Dates Problem Status W/U Status Risk Notes Problem Acquired hammer toe of right foot (6809399491712299 ) Other hammer toe(s) (acquired), right foot (M20.41) Active confirmed Chronic problem, Worse (4) Problem Acquired hammer toe of left foot (7587367307345718 ) Other hammer toe(s) (acquired), left foot (M20.42) Active confirmed Problem Polyneuropathy due to type 2 diabetes mellitus (902383766) Type 2 diabetes mellitus with diabetic polyneuropathy (E11.42) Active confirmed Vital Signs Height 5 ft 0 in in 11/25/2023 Weight 170 lbs 11/25/2023 BMI 33.20 kg/m2 11/25/2023 Procedures Procedure Date Ordered Date Performed Result Body Sit e 02266-JNAT SKIN LESIONS, 2 TO 4 11/25/2023 N/A A9041-JGCLRXZE DYSTROPHIC NAILS ANY # 11/25/2023 N/A Encounters Encounter Location Date Provider Diagnosis [facility] [address] [place] [address] 11/25/2023 Ly Black Type 2 diabetes mellitus with diabetic polyneuropathy E11.42 and Xerosis of skin L85.3 Assessments Encounter Date Diagnosis (ICD Code) Assessment Notes Treatment Notes Treatment Clinical Notes Section Notes 11/25/2023 Type 2 diabetes mellitus with diabetic polyneuropathy (ICD-10 - E11.42) 11/25/2023 Xerosis of skin (ICD-10 - L85.3) Response to treatment - Improvement Plan Of Treatment Pending Test Test Name Order Date 66297-OSED SKIN LESIONS, 2 TO 4 04/30/20 16 23157-PYAB SKIN LESIONS, 2 TO 4 05/13/20 17 40422-RZIA SKIN LESIONS, 2 TO 4 05/12/20 18 07235-KWED SKIN LESIONS, 2 TO 4 05/11/20 83931-BKNH SKIN LESIONS, 2 TO 4 05/16/20 20 29693-MDUF SKIN LESIONS, 2 TO 4 08/14/19 22 84827-VHIH SKIN LESIONS, 2 TO 4 08/20/19 23 59902-QPVB SKIN LESIONS, 2 TO 4 08/19/19 24 60693-OAYS SKIN LESIONS, 2 TO 4 11/25/19 24 X6058-SAGTMABY DYSTROPHIC NAILS ANY # L9917-SDZQUSTA DYSTROPHIC NAILS ANY # P7950-LKORWLYK DYSTROPHIC NAILS ANY # E0831-XZVSNUZS DYSTROPHIC NAILS ANY # G6896-DETJBZGP DYSTROPHIC NAILS ANY # S4119-TWHLJCSP DYSTROPHIC NAILS ANY # O0982-JVTNCKKW DYSTROPHIC NAILS ANY # K8469-QONUIQYW DYSTROPHIC NAILS ANY # J0918-RZEYFXHI DYSTROPHIC NAILS ANY # Next Appt Details Provider Name:Ly Armenta , 11/30/2024 02:30:00 PM, [address] [facility], [place], [address], Insurance Providers Payer Name Payer Address Payer Phone Subscriber Number Group Number Insured Name Patient Relationship to Insured Coverage Start Date Coverage End Date Medicare National [employer] [address] [place] [address] [id number] Radha Waldron Self - patient is the insured [employer] [address] [place] [address] [id number] Radha Waldron Self - patient is the insured Medical (General) History Medical History History ICD Code Diabetic High blood pressure Measles Chicken pox Mumps Anxiety Broken bones Surgical History Surgery Date(Month/Year) sinus surgery D&C Hospitalization History Reason Date(Month/Year) [facility]- Broken Arm - right humerus 08/30/2020
--- OUTSIDE RECORDS SUMMARY | 2024-11-21 15:06 | XMS_ITS | Encounter Summary ---
Author Organization [facility] Address [address] [facility] [address] [place] [address] Phone Care Team Providers Care Engineering Instructor Name Role Phone Roshan Jarvis OD Unavailable [phone] Noé Richmond PA-C Primary Care Provider [phone] Reason for Referral * Hospital - Outpatient (Emergency) - Closed Specialty Diagnoses / Procedures Referred By Ashia cates Referred To Contact Diagnoses Right leg pain Procedures US Lower Extremity Veins Duplex (Right) Noé Richmond PA-C [address] [place], [place] Email: [email or web address] Referral ID Status Reason Start Date Expiration Date Visits Re quested Visits Authorized [id number] Closed 11/21/2024 1 1 * Consultation (Routine) - Authorized Specialty Diagnoses / Procedures Referred By Ashia cates Referred To Contact Noé Richmond PA-C [address] [place], [place] Email: [email or web address] Keisha Guzman MD [address] [place] [address] Orthopedics & Sports Medicine, [facility] [place] [address] Email: Referral ID Status Reason Start Date Expiration Date V isits Requested Visits Authorized [id number] Authorized 11/21/2024 11/21/2025 1 1 * Consultation (Within 2 weeks) - New Request Specialty Diagnoses / Procedures Referred By Ashia cates Referred To Contact Noé Richmond PA-C [address] [place] [address] Email: West Bowers MD [address] [place] [id number] Referral ID Status Reason Start Date Expiration Date V isits Requested Visits Authorized [id number] New Request 11/21/2024 11/21/2025 1 1 Reason for Visit * Reason Comments Follow Up Visit 3 months (around 10/25) for Recheck. Results Echo, did not get re sults from cardio yet Encounter Details Date Type Department Care Team (Latest Contact Info) Description 11/21/2024 10:20 AM EDT Office Visit [facility] Internal Medicine [address] [place] [address] Noé Richmond PA-C [address] [place] [address] [email or web address] Mixed hyperlipidemia (Primary Dx); Acquired hypothyroidism; Type 2 diabetes mellitus without complication, without long-term current use of insulin; Right leg pain; Essential hypertension; Trigger middle finger of right hand; Bradycardia Social History Tobacco Use Types Packs/Day Years [...] on file documented as of this encounter Last Filed Vital Signs Vital Sign Reading Time Taken Comments Blood Pressure 134/54 11/21/2024 10:37 AM EDT Pulse 67 11/21/2024 10:37 AM EDT Temperature - - Respiratory Rate 18 11/21/2024 10:37 AM EDT Oxygen Saturation 98% 11/21/2024 10:37 AM EDT Inhaled Oxygen Concentration - - Weight 77.7 kg (171 lb 3.2 oz) 11/21/2024 10:37 AM EDT Height 152.3 cm (4' 11.96 ) 11/21/2024 10:37 AM EDT Body Mass Index 33.48 11/21/2024 10:37 AM EDT documented in this encounter Progress Notes * Noé Richmond PA-C - 11/21/2024 10:20 AM EDT FOLLOW UP Subjective Radha Avelar is a 79 y.o. female. History of Present Illness Patient is here for a 3 month follow up. Patient with a history of hypertension which is well-controlled on hydrochlorothiazide 25 mg daily.She also carries a history of hyperlipidemia and is on simvastatin with her last LDL of 80 back in July 2024. Patient carries a history of diabetes with a hemoglobin A1c of 7.0 on recent labs in July 2024. She is maintained on metformin at 1000 mg p.o. twice daily. She states that she does check her blood sugars in daily and are never below 125. She states that they typically range 130s to 140s. I had a long discussion with her with regards to diet and exercise and looking at the trend itappears that the patient has a higher hemoglobin A1c drawn the winter months where she is less active. However during the summer months that her hemoglobin A1c is improved. We discussed the importance of eating at least 3 meals per day where she often skips meals and does not eat her first meal until 3:00 in the afternoon which could be contributing to fat storage. She also carries a history of hypothyroidism with her last TSH being 2.50 back in July 2024. Sheis on levothyroxine 50 mcg daily. Patient seen by cardiology on 08/01/2024 for Holter monitor readings of back in June 2024 which revealed There is evidence of second-degree Mobitz 1 heart block at night during sleep. Slowest heartrate is around 29 bpm when he goes to 2-1 AV block. This could be due to high vagal tone during sleep especially if she has sleep apnea. Patient has been asymptomatic. At the conclusion of the visit it was felt that she has sinus node dysfunction however asymptomatic therefore findings do not suggest she needs a pacemaker. Did refer her to pulmonary for sleep study and has a initial appointment on 09/21, which was negative for sleep apnea. She did undergo an echocardiogram which revealed an EF of 60 to 65%. Mild mitral and tricuspid insufficiency grade 2 diastolic dysfunction with mild LVH She has been experiencing difficulty in flexing her right middle finger, which she suspects may be due to trigger finger. The finger has also started to curve. She expresses interest in seeking treatment from Dr. Rivero, a hand and wrist specialist, for her current condition. A similar issue with her right ring finger in 2020 was successfully treated with a cortisone injection administered by [facility]. 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 Currently, pain is experienced upon light touch to the area, described as similar to a rug burn when not in contact. A lump in the region can be palpated, and difficulty kneeling on the affected knee during evangelical services is reported. Review of Systems Musculoskeletal: Positive for joint pain and joint swelling. Past Medical History: Diagnosis Date Anxiety disorder Colon polyp Diabetes mellitus Gastroesophageal reflux disease Hyperlipidemia 2008 Hypertensive disorder Hypothyroid 2012 Menopause 1999 OTHER DIAGNOSIS - PLEASE ANNOTATE. AODM 2008 (cough with lisinopril, rash with benicar) OTHER DIAGNOSIS - PLEASE ANNOTATE. 03/24/2016 Depression screen and fall risk assessment Peripheral neuropathy Medications Medication Sig Start Date End Date Taking? Authorizing Provider aspirin 81 mg chewable tablet Take 81 mg by mouth daily. Casandra Platt MD cholecalciferol (VITAMIN D3) 5,000 unit tablet Take 1 tablet (5,000 Units total) by mouth once a week. 11/04/21 Mckenna Doshi NP colestipol (COLESTID) 1 gram tablet Take 1 tablet by mouth daily. 05/26/22 Casandra Platt MD FREESTYLE LITE METER meter kit Use as instructed Patient taking differently: 1 each every morning. Use as instructed 10/20/18 Mckenna Doshi NP FREESTYLE LITE Strp strips 1 each by See Administration Instructions route 2 (two) times a day. 07/13/24 Noé Richmond PA-C hydroCHLOROthiazide 25 MG tablet take one tablet by mouth every day 04/18/24 Moi Patton MD lancets 28 gauge Misc 1 each by Percutaneous route 2 (two) times a day. Patient taking differently: 1 each by Percutaneous route every morning. 02/28/19 Mckenna Doshi NP levothyroxine (SYNTHROID, LEVOTHROID) 50 MCG tablet Take 1 tablet (50 mcg total) by mouth every morning. 12/21/23 Moi Patton MD losartan (COZAAR) 100 MG tablet Take 1 tablet (100 mg total) by mouth every morning. 09/22/24 Noé Richmond PA-C MAGNESIUM OXIDE ORAL Take 250 mg by mouth daily. Casandra Platt MD metFORMIN (GLUCOPHAGE-XR) 500 MG 24 hr tablet Take 2 tablets (1,000 mg total) by mouth daily with dinner. 07/17/24 Noé Richmond PA-C omeprazole (PRILOSEC) 20 MG capsule TAKE ONE CAPSULE BY MOUTH EVERY DAY 11/16/24 Noé Richmond PA-C simvastatin (ZOCOR) 20 MG tablet take 1 tablet by mouth nightly at bedtime 01/13/24 Moi Patton MD omeprazole (PRILOSEC) 20 MG capsule Take 1 capsule (20 mg total) by mouth daily. 11/22/23 11/16/24 Moi Patton MD Objective Physical Exam There were no vitals filed for this visit. Gen: Alert, pleasant and cooperative, no acute distress. Sitting upright in hospital bed. Appears stated age. HEENT: Atraumatic, normocephalic. PERRL. No gross hearing deficits noted. Mucous membranes moist. Neck supple and symmetrical. No palpable cervical adenopathy. Skin: [place], warm, dry. No visible rashes, ulcers or lesions. Chest: No focal tenderness to palpitation. Lungs clear to auscultation bilaterally without accessory breath sounds or increased respiratory effort. CV: RRR, no murmurs, rubs, gallops appreciated. No JVD or carotids bruits bilaterally. Distal pulses palpable and symmetric 2+. No LE edema bilaterally. Abd: Soft, nontender, nondistended. No rebound, no guarding, no CVA tenderness Bowel sounds present. Ext: No gross deformities. Moving all extremities comfortably. Equal strength bilaterally. Extremities well perfused without clubbing or cyanosis. Neuro: CN II-XII grossly intact, no strength deficits. Alert and oriented x 3. Normal speech and language. Memory intact. Mood appropriate. Respiratory: Clear to auscultation, no wheezing, rales or rhonchi Cardiovascular: Regular rate and rhythm, no murmurs, rubs, or gallops Results Imaging - Echocardiogram: Ejection fraction of 60 to 65%, grade 2 diastolic impairment, mild concentric LVH, normal RV size and function, trileaflet aortic valve with no evidence of aortic stenosis, normal ascending aortic root, mild mitral and tricuspid insufficiency, and mildly elevated PA pressure Latest Reference Range & Units 08/22/24 10:11 Cholesterol 0 - 240 mg/dL 152 Chol/HDL Ratio 3.3 - 4.4 3.3 HDL Cholesterol mg/dL 46 LDL Cholesterol 50 - 129 mg/dL 80 Triglycerides 30 - 160 mg/dL 131 TSH 0.27 - 4.20 uIU/mL 2.50 Hgb A1C 4.3 - 5.8 % 7.0 (H) (H): Data is abnormally high Assessment & Plan Assessment & Plan Mixed hyperlipidemia Patient's last lipid panel back in July 2024 revealed an LDL of 80. Patient to continue simvastatin 20 mg nightly we will repeat a lipid panel Acquired hypothyroidism Patient's last TSH was noted at 2.50 back in July 2024 we will continue levothyroxine 50 mcg daily. Will obtain a repeat TSH level. Type 2 diabetes mellitus without complication, without long-term current use of insulin Patient with a history of diabetes with [...] until about 3:00 in the afternoon. I didexpress the importance of eating 3-5 small meals [...] mg p.o. twice daily -Repeat hemoglobin A1c Right leg pain Patient noted to have right leg pain with noted varicose veins with a palpable cord in the right lateral aspect of the cruz distally. I will obtain an ultrasound of the right lower extremity to rule out DVT. Essential hypertension Well-controlled on losartan 100 mg p.o. daily and hydrochlorothiazide 25 mg daily Trigger middle finger of right hand Patient noted to have a right middle finger trigger finger therefore we will refer to [facility] for cortisone injection. Bradycardia Patient underwent a Holter monitor which noted second-degree Mobitz 1 AV block and therefore was referred to cardiology. However they felt that she did not require a pacemaker. The echocardiogram results indicate an ejection fraction of 60% to 65%, which is within the normal range.There is grade 2 diastolic impairment and mild concentric left ventricular hypertrophy (LVH), likely due to a historyof high blood pressure. The right ventricle size and function are normal, with a trileaflet aortic valve and no evidence of aortic stenosis. The ascending aortic root is normal. There is mild mitral and tricuspid insufficiency, and the pulmonary arterial pressure is mildly elevated. The low heart rate is likely due to conduction issues rather than structural abnormalities. - Second opinion with [facility] cardiology Dr. Bowers referral placed Follow-up The patient will follow up in 3 months. I obtained verbal consent from the patient or their proxy to record this visit for purposes of producing a draft of the encounter documentation. Noé Richmond PA-C documented in this encounter Miscellaneous Notes * Assessment & Plan Note - Noé Richmond PA-C - 11/21/2024 10:20 AM EDT Associated Problem(s): Essential hypertension Well-controlled on losartan 100 mg p.o. daily and hydrochlorothiazide 25 mg daily * Assessment & Plan Note - Noé Richmond PA-C - 11/21/2024 10:20 AM EDT Associated Problem(s): Mixed hyperlipidemia Patient's last lipid panel back in July 2024 revealed an LDL of 80. Patient to continue simvastatin 20 mg nightly we will repeat a lipid panel * Assessment & Plan Note - Noé Richmond PA-C - 11/21/2024 10:20 AM EDT Associated Problem(s): Acquired hypothyroidism Patient's last TSH was noted at 2.50 back in July 2024 we will continue levothyroxine 50 mcg daily. Will obtain a repeat TSH level. * Assessment & Plan Note - Noé Richmond PA-C - 11/21/2024 10:20 AM EDT Associated Problem(s): Type 2 diabetes mellitus without complication, without long-term current useof insulin Patient with a history of diabetes with [...] until about 3:00 in the afternoon. I didexpress the importance of eating 3-5 small meals [...] mg p.o. twice daily -Repeat hemoglobin A1c * Assessment & Plan Note - Noé Richmond PA-C - 11/21/2024 10:20 AM EDT Associated Problem(s): Trigger middle finger of right hand Patient noted to have a right middle finger trigger finger therefore we will refer to [facility] for cortisone injection. * Assessment & Plan Note - Noé Richmond PA-C - 11/21/2024 10:20 AM EDT Associated Problem(s): Right leg pain Patient noted to have right leg pain with noted varicose veins with a palpable cord in the right lateral aspect of the cruz distally. I will obtain an ultrasound of the right lower extremity to rule out DVT. * Assessment & Plan Note - Noé Richmond PA-C - 11/21/2024 10:20 AM EDT Associated Problem(s): Bradycardia Patient underwent a Holter monitor which noted second-degree Mobitz 1 AV block and therefore was referred to cardiology. However they felt that she did not require a pacemaker. The echocardiogram results indicate an ejection fraction of 60% to 65%, which is within the normal range.There is grade 2 diastolic impairment and mild concentric left ventricular hypertrophy (LVH), likely due to a historyof high blood pressure. The right ventricle size and function are normal, with a trileaflet aortic valve and no evidence of aortic stenosis. The ascending aortic root is normal. There is mild mitral and tricuspid insufficiency, and the pulmonary arterial pressure is mildly elevated. The low heart rate is likely due to conduction issues rather than structural abnormalities. - Second opinion with [facility] cardiology Dr. Bowers referral placed documented in this encounter Plan of Treatment Upcoming Encounters Date Type Department Care Team (Late st Contact Info) Description 02/27/2025 8:40 AM EDT Appointment [facility] Internal Medicine [address] [place] [address] Noé Richmond PA-C [address] [place] [address] [email or web address] Scheduled Orders Name Type Priority Associated Diagnoses Orde r Schedule Lipid panel Lab Routine Mixed hyperlipidemia Expected: 11/21/2024, Expires: 11/21/2025 TSH with reflex Lab Routine Acquired hypothyroidism Expected: 11/21/2024, Expires: 11/21/2025 Hemoglobin A1c Lab Routine Type 2 diabetes mellitus without complication, without long-term current use of insulin Expected: 11/21/2024, Expires: 11/21/2025 Scheduled Referrals Name Type Priority Associated Diagnoses Order Schedule External Referral to Cardiology ([facility]) Outpatient Referral Routine Ordered: 11/21/2024 Ambulatory referral to [facility] Orthopedics - Employed Practices Outpatient Referral Routine Ordered: 11/21/2024 documented as of this encounter Procedures Procedure Name Priority Date/Time Associated Diagnosis Comments US LOWER EXTREMITY VEINS DUPLEX (RIGHT) STAT 11/21/2024 11:13 AM EDT Right leg pain documented in this encounter Visit Diagnoses Diagnosis Mixed hyperlipidemia- Primary Acquired hypothyroidism Unspecified hypothyroidism Type 2 diabetes mellitus without complication, without long-term current use of insulin Right leg pain Pain in soft tissues of limb Essential hypertension Unspecified essential hypertension Trigger middle finger of right hand Bradycardia Other specified cardiac dysrhythmias documented in this encounter Additional Health Concerns Assessment Noted Time PHQ-2 Depression Total Score: 0 05/23/20 24 9:03 AM EDT documented as of this encounter Care Teams Engineering Instructor Relationship Specialty Start Date End Date Noé Richmond PA-C [address] [place] [address] [email or web address] PCP - General Physician Drafter Apprentice 05/23/24 Roshan Jarvis OD Optometry 09/05/19 documented as of this encounter Additional Source Comments The information contained in this document represents components of the legal health record. It is not the complete legal health record.[facility]
--- OUTSIDE RECORDS SUMMARY | 2024-11-21 15:06 | XMS_ITS | Encounter Summary ---
Author Organization [facility] Address [address] [place] [address] Phone Care Team Providers Care Cushion Former Name Role Phone Roshan Jarvis OD Unavailable [phone] Noé Richmond PA-C Primary Care Provider Encounter Details Date Type Department Care Team (Late st Contact Info) Description 08/01/2024 Procedure Pass Echo [facility] [address] [place], [place] [id number] Social History Tobacco Use Types Packs/Day Years [...] Info) Description 02/27/2025 8:40 AM EDT Appointment [facility] Internal Medicine [address] [place] [address] Noé Richmond PA-C [address] [place] [address] [email or web address] documented as of this encounter Visit Diagnoses Not on filedocumented in this encounter Additional Health Concerns Assessment Noted Time PHQ-2 Depression Total Score: 0 05/23/20 24 9:03 AM EDT documented as of this encounter Care Teams Cushion Former Relationship Specialty Start Date End Date Noé Richmond PA-C [address] [place] [address] PCP - General Physician Mold Breaker 05/23/24 Roshan Jarvis OD Optometry 09/05/19 documented as of this encounter Additional Source Comments The information contained in this document represents components of the legal health record. It is not the complete legal health record.[facility]
--- OUTSIDE RECORDS SUMMARY | 2024-11-21 15:06 | XMS_ITS | Encounter Summary ---
Author Organization [facility] Address [address] [facility] [address] [place] [address] Phone Care Team Providers Care Medical Device Sales Consultant Name Role Phone Mckenna Doshi NP Primary Care Provider [phone] Roshan Jarvis OD Unavailable Moi Patton MD Primary Care Provider [phone] Noé Richmond PA-C Primary Care Provider [phone] Encounter Details Date Type Department Care Team (Late Contact Info) Description 12/06/2019 Ancillary Orders [facility] Internal Medicine [address] [place] [address] Mckenna Doshi, NANNY BABYSITTER [address] [place] [address] [email or web address] Breast screening Social History Tobacco Use Types Packs/Day Years [...] Info) Description 02/27/2025 8:40 AM EDT Appointment [facility] Internal Medicine [address] [place] [address] Noé Richmond PA-C [address] [place], [place] [email or web address] documented as of this encounter Results * BI MAMMOGRAM SCREENING WITH TOMOSYNTHESIS WITH CAD (BILATERAL) (02/28/2020 1:29 PM EDT) Anatomical Region Laterality Modality Breast Left, Breast Right, Breast Bilateral Bila teral Mammography 02/28/2020 2:57 PM EDT Impressions 02/28/2020 3:03 PM EDT No mammographic signs of malignancy. ??Annual screening is recommended. BI-RADS CATEGORY 2 - BENIGN DENSITY: ??There are scattered fibroglandular densities. Narrative 02/28/2020 3:03 PM EDT Bilateral mammography is performed in conjunction with computed aided detection. 3-D tomography along with 2-D C view imaging was also performed. Comparison made to previous dated as far back as 11/17/2013 and as recent as 12/14/2018. Stable scattered well-circumscribed small masses in both breasts. ??No suspicious masses, areas of architectural distortion or suspicious microcalcifications. ??Stable bilateral skin calcifications. Mckenna Doshi NP IMG MG EXAMS documented in this encounter Visit Diagnoses Diagnosis Breast screening Breast screening, unspecified Breast screening Breast screening, unspecified documented in this encounter Additional Health Concerns Assessment Noted Time PHQ-2 Depression Total Score: 0 06/14/20 19 10:59 AM EST documented as of this encounter Care Teams Medical Device Sales Consultant Relationship Specialty Start Date End Date Mckenna Doshi NP [email or web address] PCP - General Family Medicine 10/25/17 09/26/23 Moi Patton MD [address] [place] [address] [email or web address] PCP - General Internal Medicine 09/27/23 05/22/24 Noé Richmond PA-C [address] [place] [address] [email or web address] PCP - General Physician Concrete Floor Installer 05/23/24 Roshan Jarvis OD Optometry 09/05/19 documented as of this encounter Additional Source Comments The information contained in this document represents components of the legal health record. It is not the complete legal health record.[facility]
--- OUTSIDE RECORDS SUMMARY | 2024-11-21 15:07 | XMS_ITS | Encounter Summary ---
Author Organization [facility] Address [address] [facility] [address] [place] [address] Phone Care Team Providers Care Tapping Machine Operator Name Role Phone Mckenna Doshi NP Primary Care Provider Roshan Jarvis OD Unavailable [phone] Moi Patton MD Primary Care Provider [phone] Noé Richmond PA-C Primary Care Provider [phone] Encounter Details Date Type Department Care Team (Late Contact Info) Description 03/11/2022 Procedure Pass [facility] - [address] [place] [address] Social History Tobacco Use Types Packs/Day Years [...] Info) Description 02/27/2025 8:40 AM EDT Appointment [facility] Internal Medicine [address] [place], [place] [phone] Noé Richmond PA-C [address] [place] [address] documented as of this encounter Visit Diagnoses Not on filedocumented in this encounter Additional Health Concerns Assessment Noted Time PHQ-2 Depression Total Score: 0 11/05/19 22 9:22 AM EDT documented as of this encounter Care Teams Tapping Machine Operator Relationship Specialty Start Date End Date Mckenna Doshi NP PCP - General Family Medicine 10/25/17 09/26/23 Moi Patton MD [address] [place] [id number] PCP - General Internal Medicine 09/27/23 05/22/24 Noé Richmond PA-C [address] [place] [id number] PCP - General Physician Car Packer 05/23/24 Roshan Jarvis OD Optometry 09/05/19 documented as of this encounter Additional Source Comments The information contained in this document represents components of the legal health record. It is not the complete legal health record.[facility]
--- OUTSIDE RECORDS SUMMARY | 2024-11-21 15:07 | XMS_ITS | Encounter Summary ---
Author Organization [facility] Address [address] [facility] [address] [place] [address] Phone Care Team Providers Care Cheese Blender Name Role Phone Mckenna Doshi NP Primary Care Provider [phone] Roshan Jarvis OD Unavailable [phone] Moi Patton MD Primary Care Provider Noé [place] PA-C Primary Care Provider [phone] Encounter Details Date Type Department Care Team (Latest Contact Info) Description 01/20/2023 Transcribe Orders Virtual Department [address] [place], [place] [id number] Mckenna Doshi, TUCKER [address] [place] [address] [email or web address] Breast screening (Primary Dx) [...] Info) Description 02/27/2025 8:40 AM EDT Appointment [facility] Internal Medicine [address] [place] [address] Noé [place] PA-C [address] [place] [address] [email or web address] documented as of this encounter Results * BI MAMMOGRAM SCREENING WITH TOMOSYNTHESIS WITH CAD (BILATERAL) (03/16/2023 9:16 AM EDT) Anatomical Region Laterality Modality Breast Left, Breast Right, Breast Bilateral Bila teral Mammography 03/23/2023 4:57 PM EDT Impressions 03/24/2023 3:35 PM EDT No mammographic signs of malignancy. ??Annual screening is recommended. BI-RADS CATEGORY: ??2 - Benign finding. DENSITY: ??There are scattered fibroglandular densities. Narrative 03/24/2023 3:35 PM EDT Bilateral mammography is performed in conjunction with computed aided detection. 3-D tomography along with 2-D C view imaging was also performed. Comparison made to previous dated as far back as 05/04/2007 and as recent as 03/13/2022. Stable bilateral sub-centimeter diffusely distributed circumscribed masses. No suspicious masses, areas of architectural distortion or suspicious microcalcifications. Stable bilateral calcifications, many of which are within the skin. Procedure Note Abdirizak Avalos MD - 03/24/2023 Bilateral mammography is performed in conjunction with computed aideddetection. 3-D tomography along with 2-D C view imaging was alsoperformed. Comparison made to previous dated as far back as 05/04/2007 andas recent as 03/13/2022. Stable bilateral sub-centimeter diffusely distributed circumscribedmasses. No suspicious masses, areas of architectural distortion orsuspicious microcalcifications. Stable bilateral calcifications, many ofwhich are within the skin. IMPRESSION: No mammographic signs of malignancy. Annual screening is recommended. BI-RADS CATEGORY: 2 - Benign finding. DENSITY: There are scattered fibroglandular densities. Mckenna Doshi NP IMG MG EXAMS documented in this encounter Visit Diagnoses Diagnosis Breast screening- Primary Breast screening, unspecified Breast screening Breast screening, unspecified documented in this encounter Additional Health Concerns Assessment Noted Time PHQ-2 Depression Total Score: 0 04/15/20 22 9:31 AM EDT documented as of this encounter Care Teams Cheese Blender Relationship Specialty Start Date End Date Mckenna Doshi NP PCP - General Family Medicine 10/25/17 09/26/23 Moi Patton MD [address] [place] [address] PCP - General Internal Medicine 09/27/23 05/22/24 Noé [place] PA-C [address] [place] [address] PCP - General Physician Tosser 05/23/24 Roshan Jarvis OD Optometry 09/05/19 documented as of this encounter Additional Source Comments The information contained in this document represents components of the legal health record. It is not the complete legal health record.[facility]
--- OUTSIDE RECORDS SUMMARY | 2024-11-21 15:07 | XMS_ITS ---
Author Organization [facility] Address [address] [place] [address] Care Team Providers Care Wire Charger Name Role Phone Moi Patton MD Primary Care Provider Unavailabl e Black, Ly Unavailable [phone] Allergies Allergen (clinical drug ingredient) Drug/Non Drug Allergy documented on EMR Reaction Allergy Type Onset Date Status olmesartan Benicar Unknown Drug Allergy Active Lisinopril itchy Drug Allergy Active REASON FOR VISIT At Risk Footcare, Skin problem(s) Medications Medication SIG (Take, Route, Frequency, Duration) Notes Start Date End Date Status Aspirin 81 MG 1 tablet Orally Once a day Active Losartan Potassium 100 MG 1 tablet Orall y Once a day Active Simvastatin 20 MG 1 tablet in the evening Orally Once a day Active Magnesium 250 MG 1 tablet with a meal Orally Once a day for 30 day(s) Active hydroCHLOROthiazide Active Omeprazole 20 MG 1 capsule Orally Once [...] (M20.41,M20.42), Preulcerative Skin Lesion(s) (L85.1 08/19/2023 Active Lorazepam PRN Active cloZAPine For Anxiety Active Social History Tobacco Use: Social History Observation [...] Are you an other tobacco user? No Vital Signs Height 5 ft 0 in in 11/25/2023 Weight 170 lbs 11/25/2023 BMI 33.20 kg/m2 11/25/2023 Procedures Procedure Date Ordered Date Performed Result Body Sit e 30821-AYDD SKIN LESIONS, 2 TO 4 11/25/2023 N/A [id number] DYSTROPHIC NAILS ANY # 11/25/2023 N/A Encounters Encounter Location Date Provider Diagnosis [facility] [address] [address] 11/25/2023 Ly Armenta Type 2 diabetes mellitus with diabetic polyneuropathy E11.42 and Xerosis of skin L85.3 Assessments Encounter Date Diagnosis (ICD Code) Assessment Notes Treatment Notes Treatment Clinical Notes Section Notes 11/25/2023 Type 2 diabetes mellitus with diabetic polyneuropathy (ICD-10 - E11.42) 11/25/2023 Xerosis of skin (ICD-10 - L85.3) Response to treatment - Improvement Plan Of Treatment Pending Test Test Name Order Date 88697-ECKO SKIN LESIONS, 2 TO 4 11/25/19 24 [id number] DYSTROPHIC NAILS ANY # Next Appt Details Follow Up: prn, Reason: Provider Name:Ly Armenta , 11/30/2024 02:30:00 PM, [address] [place] [address], [id number], Procedure Notes * Category Sub-Category Detail Notes Keratoma Treatment Parring or Cutting o f Benign Hyperkeratotic Lesion(s) 77601 (2-4 Lesions) - The Benign hyperkeratotic lesions, as described above were pared, and/or cut utilizing a sterile #15 blade, tissue nippers, and/or dremel Nail Reduction Nail Reduction Trimming of dyst rophic nails performed to reduce/remove overall nail length and girth, by manual and electrical means with use of a nail nipper and/or dremel, to more viable healthy nail plate or bed tissue 6-10 (G0127) Progress Notes * Radha AVELARDOB:1944 (78 yo F)Acc No.[id number]:11/25/2023 Progress Note Patient:Radha Jiménez Provider:?Ly Armenta DPM :1945???Age:78 Y???Sex:Female D ate:11/25/2023 Address:[address] [place] [address], [address] [place], [place] [id number] Pcp:Moi Patton MD Subjective: * Chief Complaints: * ???At Risk FootcareSkin prob sindy(s) * HPI: ???At Risk footcare:?Pt States Last PCP Visit:?Date?07/14/2023 ???Skin problems:?Nature:?dryness.?Location:?B/L ,.?Duration:?several months?.?Onset/Cause:?unknown.?Course:?improved, , at _80 %.?Treatments:?medication ( AM Lactin ) , admits intermittent adherence to recommended application.? * ROS:?General/Constitutional:?Nausea?denies.?Vomiting?denies.?Hunger Thirst?denies.?Loss appetite?denies.?Chills?denies.?Fatigue?denies.?Fever?denies.?Night Sweats?denies.?Unexplained weight loss?denies.?Ophthalmologic:?Blurred vision?denies.?Red eye?denies.?HEENTM:?Dentures?admits.?Dizziness?denies.?Glasses/contacts?admits.?Retinopathy?de nies.?Blurred/double vision?denies.?TMJ?denies.?Discharge/drainage?denies.?Implants?denies.?Hard of hearing denies.?Difficulty chewing/swallowing/speaking?denies.?Nose bleeds?denies.?Sore mouth?denies.?Swollen glands?denies.?Respiratory:?On Oxygen?denies.?Pneumonia/pleurisy?denies.?Bronchitis?denies.?Emphysema?denies.?C oughing?denies.?Cough blood?denies.?Shortness of breath?denies.?Wheezing?denies.?Cardiovascular:?Pacemaker?denies.?MVP?denies.?WPW?denies.?CHF?denies.?Heart attack?denies.?Septal defect?denies.?Rapid beat?denies.?Chest pain ?denies.?Atrial Fib.?denies.?Murmur/Palpitations?denies.?Gastrointestinal:?Hemorrhoids?denies.?Stomach/Abdominal pain?denies.?Dark blood stool?denies.?Irritable bowel ?denies.?Constipation?denies.?Diarrhea?denies.?Vomiting?denies.?Hematology:?Swelling?denies.?Bruising?denies.?Bleeding problem?denies.?Genitourinary:?Blood urine?denies.?Frequent/Painfu/urination/bladder control?denies.?Kidney stones?denies.?Infection (UTI)?denies.?Nephropathy?denies.?Musculoskeletal:?Hammertoes?denies.?Bunions?denies.?Scoliosis/kyphosis?denies.?Muscle cramps / walking?denies.?Generalized aches and pains?denies.?Weakness?denies.?Integ.:?Dewitt?denies.?Scars?denies.?Corns/calluses?denies.?Ingrown nails?denies.?Painful nails?denies.?Rashes?denies.?Neurologic:?Difficulty sleeping?denies.?Bipolar?denies.?Brain disorder?denies.?Balance trouble?denies.?Confusion?denies.?Fainting/blackouts?denies.?Headache?denies.?Tr emors?denies.? * Medical History:? * Surgical History:?sinus surg josé luis D&C * Hospitalization/Major Diagno stic Procedure:?[facility]- Broken Arm - right humerus 08/30/2020 * Family History:?Mother: dece ased, diagnosed with Unspecified essential hypertension, Diabetic - NIDDM.?Father: .?Siblings: diagnosed with Unspecified essential hypertension, Other malignant neoplasm of unspecified site.? * Social History:?Tobacco Use:?Tobacco Use/Smoking?Are you a:?nonsmoker ?Additional Findings: Tobacco Non-User?Current non-smoker ?Tobacco use other than smoking?Are you an other tobacco user??No ???Drugs/Alcohol:?Drugs?Have you used drugs other than those for medical reasons in the past 12 months??No ?Alcohol Screen?Did you have a drink containing alcohol in the past year??No ?Points?0 ?Interpretation?Negative ???Miscellaneous:?no Caffeine. ?Children: yes, 3. ?Exercise: yes, walking Daily. ?Marital status: . ?Occupation: [employer]. * Medications:?TakingLevothyro xine Sodium 50 MCG Tablet Oral metFORMIN HCl ER 750 MG Tablet Extended Release 24 Hour Orally Omeprazole 20 MG Capsule Delayed Release 1 capsule Orally Once a dayAspirin 81 MG Tablet 1 tablet Orally Once a daySimvastatin 20 MG Tablet 1 tablet in the evening Orally Once a dayLosartan Potassium 100 MG Tablet 1 tablet Orally Once a dayhydroCHLOROthiazide Magnesium 250 MG Tablet 1 tablet with a meal Orally Once a daycloZAPine , Notes: For AnxietyLorazepam , Notes: PRNExtra Depth Orthopedic Shoes (1 Pair) with Customized Heat Molded Multidensity Innersoles (3 Pair) as directed Dx: NIDDM/Polyneuropathy (E11.42), Hammertoe Foot Deformity (M20.41,M20.42), Preulcerative Skin Lesion(s) (L85.1Ammonium Lactate 12 % Cream 1 application Externally Twice a dayTaking Levothyroxine Sodium 50 MCG Tablet Oral Taking metFORMIN HCl ER 750 MG Tablet Extended Release 24 Hour Orally Taking Omeprazole 20 MG Capsule Delayed Release 1 capsule Orally Once a dayTaking Aspirin 81 MG Tablet 1 tablet Orally Once a dayTaking Simvastatin 20 MG Tablet 1 tablet in the evening Orally Once a dayTaking Losartan Potassium 100 MG Tablet 1 tablet Orally Once a dayTaking hydroCHLOROthiazide Taking Magnesium 250 MG Tablet 1 tablet with a meal Orally Once a dayTaking cloZAPine , Notes: For AnxietyTaking Lorazepam , Notes: PRNTaking Extra Depth Orthopedic Shoes (1 Pair) with Customized Heat Molded Multidensity Innersoles (3 Pair) as directed Dx: NIDDM/Polyneuropathy (E11.42), Hammertoe Foot Deformity (M20.41,M20.42), Preulcerative Skin Lesion(s) (L85.1Taking Ammonium Lactate 12 % Cream 1 application Externally Twice a dayNot-Taking/PRNMetoprolol Succinate ER 50 MG Tablet Extended Release 24 Hour 1 tablet Orally Once a dayMedication List reviewed and reconciled with the patientNot-Taking/PRN Metoprolol Succinate ER 50 MG Tablet Extended Release 24 Hour 1 tablet Orally Once a dayMedication List reviewed and reconciled with the patient * Allergies:?Lisinopril: itchy Benicaryes[Allergies Verified] Objective: * Vitals:?Ht: 5 ft 0 in, Wt:17 0, BMI:33.20, Shoe size:8, BS:139. * ???Past Orders: ???Lab:HEMOGLOBIN A1C (GLYCO HEMOGLOBIN) (Order Date - 08/20/2022) (Collection Date - 06/25/2022) ? Value Reference Range ?HEMOGLOBIN A1C % (HH) 7.2 * Examination: ???Ophthalmology Referral: ?DIABETES EYE EXAM?Diabetic Retinopathy Screening:?No ?Findings of Diabetic Eye Exam:?no retinopathy?Neurological: ?SENSORY:?exam demonstrates. reduced vibration lower extremity,R>L 5.07 monofilament test performed at plantar aspects of 5 varied sites per foot shows sensation, reduced , B/L, reduced light touch sensation, , Pt relates, anesthesia, Pt denies, hyperesthesia, paresthesia, pins and needles sensation, shooting/radiating sensation.?Nails: ?NAILS are:?Elongated, overgrown, dystrophic, 1-5 B/L, , .?Dermatologic: ?SKIN FINDINGS:??Skin exam reveals Keratotic lesion(s) located at, SUB MTH (s), 1, B/L , SUB MTH (s), 3, 4, Left , , Skin shows sign(s) of, dryness, scaling, in a stocking fashion, no fissure(s) present, B/L, approximately _80% LESS.?Vascular: ?DP PULSES:?2/4, B/L.?PT PULSES:?2/4, B/L.? Assessment: * Assessment: 1.?Type 2 diabetes mellitus with diabetic polyneuropathy - E11.42?2.?Xerosis of skin - L85.3, Response to treatment - Improvement? Plan: * Treatment: * Procedures:?Keratoma Treatment:?Parring or Cutting of Benign Hyperkeratotic Lesion(s)?92188 (2-4 Lesions) - The Benign hyperkeratotic lesions, as described above were pared, and/or cut utilizing a sterile #15 blade, tissue nippers, and/or dremel.?Nail Reduction:?Nail Reduction?Trimming of dystrophic nails performed to reduce/remove overall nail length and girth, by manual and electrical means with use of a nail nipper and/or dremel, to more viable healthy nail plate or bed tissue 6-10 (G0127).? * Procedure Codes:?23954 TRIM SKIN LESIONS, 2 TO 4, Modifiers: XS G0127 TRIMMING DYSTROPHIC NAILS ANY #, Modifiers: XS * Preventive Medicine:? ??Counseling:?Discussion:?-12: Office or other outpatient visit for the evaluation and management of an established patient, which required a medically appropriate history and/or examination and STRAIGHTFORWARD level of MEDICAL DECISION MAKING, 1 SELF-LIMITED OR MINOR PROBLEM, MINIMAL- NO AMOUNT/COMPLEXITY OF DATA TO BE REVIEWED/ANALYZED, AND MINIMAL RISK OF COMPLICATION/MORBIDITY. The visit on the day of the encounter encompassed interpreting the data and educating the patient as to the nature of their condition, treatment options available according to their individual PMH, meds, allergies, and overall health/living conditions, as well as any potential risks or complications that may occur from a failure to adhere to, and participate in, the recommended course of therapy. The discussion included a complete verbal, and/or written explanation of the examination results, any x-rays taken, the proposed diagnosis, and outline of the treatment plan. A schedule for future care needs was also explained. The patient verbalized an understanding of the instructions at this time and agreed to be an active participant in their treatment. If the patient should think of any questions or concerns after the visit, I have encouraged the patient to call the office.?Xerosis:?Given recent successful results to treatment, The patient is to cont the rx cream as directed.? * Follow Up:?prn * Images: * Sign off status: Completed true * Provider:?Ly Armenta DPM Date:?2023 Generated for Kelvin betancourt/Romeo/Marci on:?11/21/2024 10:05 AM EDT History and Physical Notes * HPI (History of Present Illness) Category Sub-Category Detail Notes Category Not es Skin problems Nature: dryness Location: B/L , Duration: several months Onset/Cause: unknown Course: improved, , at _80 % Treatments: medication ( AM Lact in ) , admits intermittent adherence to recommended application At Risk footcare Pt States Last PCP Visit: Date: 3 Examination Category Sub-Category Detail Notes Category Not es Neurological SENSORY: exam demonstrate s. reduced vibration lower extremity,R>L 5.07 monofilament test performed at plantar aspects of 5 varied sites per foot shows sensation, reduced , B/L, reduced light touch sensation, , Pt relates, anesthesia, Pt denies, hyperesthesia, paresthesia, pins and needles sensation, shooting/radiating sensation Dermatologic SKIN FINDINGS: Skin exam reveal s Keratotic lesion(s) located at, SUB MTH (s), 1, B/L , SUB MTH (s), 3, 4, Left , , Skin shows sign(s) of, dryness, scaling, in a stocking fashion, no fissure(s) present, B/L, approximately _80% LESS Orthopedic FOOTWEAR EVALUATION: Ophthalmology Referral DIABETES EYE EXAM Diabeti c Retinopathy Screening:: No Findings of Diabetic Eye Exam:: no retin opathy Vascular DP PULSES (B): 2/4, B/L PT PULSES (B): 2/4, B/L Nails NAILS are: Elongated, overgrown, dystro phic, 1-5 B/L, ,
--- OUTSIDE RECORDS SUMMARY | 2024-11-21 15:07 | XMS_ITS | Encounter Summary ---
Author Organization [facility] Address [address] [facility] [address] [place] [address] Phone Care Team Providers Care Terminal System Operator Name Role Phone Mckenna Doshi NP Primary Care Provider [phone] Roshan Jarvis OD Unavailable [phone] Moi Patton MD Primary Care Provider [phone] Noé Richmond PA-C Primary Care Provider [phone] Encounter Details Date Type Department Care Team (Late Contact Info) Description 08/30/2020 Procedure Pass [facility] [place] [place] Scan - [address] [address] Social History Tobacco Use Types Packs/Day Years [...] Info) Description 02/27/2025 8:40 AM EDT Appointment [facility] Internal Medicine [address] [place], [place] [phone] Noé Richmond PA-C [address] [place] [address] documented as of this encounter Visit Diagnoses Not on filedocumented in this encounter Additional Health Concerns Assessment Noted Time PHQ-2 Depression Total Score: 0 06/14/20 19 10:59 AM EST documented as of this encounter Care Teams Terminal System Operator Relationship Specialty Start Date End Date Mckenna Doshi NP PCP - General Family Medicine 10/25/17 09/26/23 Moi Patton MD [address] [place] [address] PCP - General Internal Medicine 09/27/23 05/22/24 Noé [place] PA-C [address] [place] [address] PCP - General Physician Manager Field Investigations 05/23/24 Roshan Jarvis OD Optometry 09/05/19 documented as of this encounter Additional Source Comments The information contained in this document represents components of the legal health record. It is not the complete legal health record.[facility]
--- OUTSIDE RECORDS SUMMARY | 2024-11-21 15:07 | XMS_ITS | Encounter Summary ---
Author Organization [facility] Address [address] [place] [address] Phone Care Team Providers Care Photograph Enlarger Name Role Phone Mckenna Doshi NP Primary Care Provider [phone] Roshan Jarvis OD Unavailable [phone] Moi Patton MD Primary Care Provider Noé [place] PA-C Primary Care Provider [phone] Encounter Details Date Type Department Care Team (Late st Contact Info) Description 01/20/2023 Procedure Pass [facility] - [address] [place] [address] Social History Tobacco Use Types Packs/Day Years [...] Info) Description 02/27/2025 8:40 AM EDT Appointment [facility] Internal Medicine [address] [place], [place] [phone] Noé Richmond PA-C [address] [place] [address] documented as of this encounter Visit Diagnoses Not on filedocumented in this encounter Additional Health Concerns Assessment Noted Time PHQ-2 Depression Total Score: 0 04/15/20 22 9:31 AM EDT documented as of this encounter Care Teams Photograph Enlarger Relationship Specialty Start Date End Date Mckenna Doshi NP PCP - General Family Medicine 10/25/17 09/26/23 Moi Patton MD [address] [place] [address] PCP - General Internal Medicine 09/27/23 05/22/24 Noé Richmond PA-C [address] [place] [address] PCP - General Physician Chemical Research Engineer 05/23/24 Roshan Jarvis OD Optometry 09/05/19 documented as of this encounter Additional Source Comments The information contained in this document represents components of the legal health record. It is not the complete legal health record.[facility]
--- OUTSIDE RECORDS SUMMARY | 2024-11-21 15:07 | XMS_ITS | Encounter Summary ---
Author Organization [facility] Address [address] [facility] [address] [place] [address] Phone Care Team Providers Care Manager Filter Name Role Phone Mckenna Doshi NP Primary Care Provider [phone] Sebas Crisostomo MD Unavailable [phone] Roshan Jarvis OD Unavailable [phone] Moi Patton MD Primary Care Provider [phone] Noé [place] PA-C Primary Care Provider [phone] Encounter Details Date Type Department Care Team (Late Contact Info) Description 08/10/2018 Transcribe Orders [facility] [address] [place] [address] Mckenna Doshi, ROLLED GLASS CROSSCUTTER [address] [place] [address] Social History Tobacco Use Types Packs/Day Years [...] Info) Description 02/27/2025 8:40 AM EDT Appointment [facility] Internal Medicine [address] [place], [place] [phone] Noé Richmond PA-C [address] [place], [place] [phone] [email or web address] documented as of this encounter Visit Diagnoses Not on filedocumented in this encounter Additional Health Concerns Assessment Noted Time PHQ-2 Depression Total Score: 0 08/10/19 19 9:57 AM EST documented as of this encounter Care Teams Manager Filter Relationship Specialty Start Date End Date Mckenna Doshi NP PCP - General Family Medicine 10/25/17 09/26/23 Moi Patton MD [address] [place], [place] [email or web address] PCP - General Internal Medicine 09/27/23 05/22/24 Noé [place] PA-C [address] [place], [place] PCP - General Physician Mid Level Java Developer 05/23/24 Sebas Crisostomo MD [address] [place] [address] [email or web address] Insurance Assigned Provider 11/26/18 02/04/19 Roshan Jarvis OD [address] [place] [address] Optometry 09/05/19 documented as of this encounter Additional Source Comments The information contained in this document represents components of the legal health record. It is not the complete legal health record.[facility]
--- OUTSIDE RECORDS SUMMARY | 2024-11-21 15:07 | XMS_ITS | Encounter Summary ---
Author Organization [facility] Address [address] [employer] [facility] [address] [place] [address] Phone Care Team Providers Care Internet Marketing Strategist Name Role Phone Mckenna Doshi NP Primary Care Provider [phone] Sebas Crisostomo MD Unavailable [phone] Roshan Jarvis OD Unavailable [phone] Moi Patton MD Primary Care Provider [phone] Noé Richmond PA-C Primary Care Provider [phone] Encounter Details Date Type Department Care Team (Late st Contact Info) Description 10/25/2017 Ancillary Orders [facility] Internal Medicine [address] [place] [address] Mckenna Doshi, HEAD ANIMAL KEEPER [address] [place] [address] Breast screening Social History Tobacco Use Types [...] Info) Description 02/27/2025 8:40 AM EDT Appointment [facility] Internal Medicine [address] [place] [address] Noé Richmond PA-C [address] [place] [address] [email or web address] documented as of this encounter Results * BI MAMMOGRAM SCREENING WITH TOMOSYNTHESIS WITH CAD (BILATERAL) (12/10/2017 7:26 AM EDT) Anatomical Region Laterality Modality Breast Left, Breast Right, Breast Bilateral Bila teral Mammography 12/10/2017 9:18 AM EDT Impressions 12/10/2017 9:30 AM EDT No findings suspicious for malignancy. In the absence of a worrisome palpable abnormality, annual screening mammography is recommended. BI-RADS CATEGORY: 2 - Benign finding. DENSITY: ??There are scattered fibroglandular densities. ?? POS CDHMAMA Narrative 12/10/2017 9:30 AM EDT COMPARISON: ??10/22/2011 through 11/27/2016. Bilateral 3-D tomosynthesis with 2-D reconstructions in the CC and MLO projection of each breast was obtained. Computer-aided detection system also utilized. No new mass, asymmetry, architectural distortion or suspicious calcifications have become apparent on either side. Chronic small circumscribed masses in both breasts are unchanged as are scattered punctate calcifications Procedure Note Dale Toro MD - 12/10/2017 COMPARISON: 10/22/2011 through 11/27/2016. Bilateral 3-D tomosynthesis with 2-D reconstructions in the CC and MLOprojection of each breast was obtained. Computer-aided detection systemalso utilized. No new mass, asymmetry, architectural distortion or suspiciouscalcifications have become apparent on either side. Chronic small circumscribed masses in both breasts are unchanged as arescattered punctate calcifications IMPRESSION: No findings suspicious for malignancy. In the absence of a worrisomepalpable abnormality, annual screening mammography is recommended. BI-RADS CATEGORY: 2 - Benign finding. DENSITY: There are scattered fibroglandular densities. POS CDHMAMA Mckenna Doshi NP IMG MG EXAMS documented in this encounter Visit Diagnoses Diagnosis Breast screening Breast screening, unspecified Breast screening Breast screening, unspecified documented in this encounter Additional Health Concerns Assessment Noted Time PHQ-2 Depression Total Score: 0 08/05/19 18 9:35 AM EST documented as of this encounter Care Teams Internet Marketing Strategist Relationship Specialty Start Date End Date Mckenna Doshi NP [email or web address] PCP - General Family Medicine 10/25/17 09/26/23 Moi Patton MD [address] [place] [address] PCP - General Internal Medicine 09/27/23 05/22/24 Noé Richmond PA-C [address] [place] [address] PCP - General Physician Financing Analyst 05/23/24 Sebas Crisostomo MD [address] [place] [address] [email or web address] Insurance Assigned Provider 11/26/18 02/04/19 Roshan Jarvis OD [address] [place] [address] Optometry 09/05/19 documented as of this encounter Additional Source Comments The information contained in this document represents components of the legal health record. It is not the complete legal health record.[facility]
--- OUTSIDE RECORDS SUMMARY | 2024-11-21 15:07 | XMS_ITS ---
Author Organization [facility] Address [address] [place] [address] Care Team Providers Care Financial Accountant Name Role Phone Moi Patton MD Primary Care Provider Unavailabl e Black, Ly Unavailable [phone] Allergies Allergen (clinical drug ingredient) Drug/Non Drug Allergy documented on EMR Reaction Allergy Type Onset Date Status olmesartan Benicar Unknown Drug Allergy Active Lisinopril itchy Drug Allergy Active REASON FOR VISIT At Risk Footcare, Toe Irritation, Skin problem(s) Medications Medication SIG (Take, Route, Frequency, Duration) Notes Start Date End Date Status hydroCHLOROthiazide Active Metoprolol Succinate ER 50 MG 1 tablet Orally Once a day Not-Taking Magnesium 250 MG 1 tablet with a meal Orally Once a day for 30 day(s) Active cloZAPine For Anxiety Active Lorazepam PRN Active Aspirin 81 MG 1 tablet Orally Once a day Active Simvastatin 20 MG 1 tablet in the evening Orally Once a day Active Losartan Potassium 100 MG 1 tablet Orall y Once a day Active metFORMIN HCl ER 750 MG Orally Active Omeprazole 20 MG 1 capsule Orally Once a day Active Levothyroxine Sodium 50 MCG Oral for 90 Active Extra Depth Orthopedic Shoes (1 Pair) with Customized Heat Molded Multidensity Innersoles (3 Pair) as directed Dx: NIDDM/Polyneuropat hy (E11.42), Hammertoe Foot Deformity (M20.41,M20.42), Preulcerative Skin Lesion(s) (L85.1 08/19/2023 Active Ammonium Lactate 12 % 1 application Externally Twice a day for 30 days Active Social History Tobacco Use: Social History [...] Signs Height 5 ft 0 in in 08/19/2023 Weight 170 lbs 08/19/2023 BMI 33.20 kg/m2 08/19/2023 Procedures Procedure Date Ordered Date Performed Result Body Sit e 60668-BGLX SKIN LESIONS, 2 TO 4 08/19/2023 N/A D9574-OEGLJQYY DYSTROPHIC NAILS ANY # 08/19/2023 N/A Encounters Encounter Location Date Provider Diagnosis [facility] [address] [place] [address] 08/19/2023 Ly Black Other hammer toe(s) (acquired), right foot M20.41 ; Other hammer toe(s) (acquired), left foot M20.42 ; Type 2 diabetes mellitus with diabetic polyneuropathy E11.42 and Xerosis of skin L85.3 Assessments Encounter Date Diagnosis (ICD Code) Assessment Notes Treatment Notes Treatment Clinical Notes Section Notes 08/19/2023 Other hammer toe(s) (acquired), right foot (ICD-10 - M20.41) Chronic problem, Worse (4) Patient Educated with: DIABETIC FOOT CARE INSTRUCTIONS. pdf (DIABETIC FOOT CARE INSTRUCTIONS. pdf) 08/19/2023 Other hammer toe(s) (acquired), left foot (ICD-10 - M20.42) 08/19/2023 Type 2 diabetes mellitus with diabetic polyneuropathy (ICD-10 - E11.42) 08/19/2023 Xerosis of skin (ICD-10 - L85.3) Plan Of Treatment Medication Medication Name Sig Start Date Stop Date Notes Extra Depth Orthopedic Shoes (1 Pair) with Customized Heat Molded Multidensity Innersoles (3 Pair) as directed Dx: NIDDM/Polyneuropathy (E11.42), Hammertoe Foot Deformity (M20.41,M20.42), Preulcerative Skin Lesion(s) (L85.1 08/19/2023 Ammonium Lactate 12 % 1 application Exte rnally Twice a day for 30 days Treatment Notes Assessment Notes Other hammer toe(s) (acquired), right fo ot Patient Educated with: DIABETIC FOOT CARE INSTRUCTIONS.pdf (DIABETIC FOOT CARE INSTRUCTIONS.pdf) Pending Test Test Name Order Date 62928-XLRF SKIN LESIONS, 2 TO 4 08/19/19 24 T1904-[id number] DYSTROPHIC NAILS ANY # Next Appt Details Follow Up: 3 Months, Reason: Provider Name:Ly Armenta , 11/30/2024 02:30:00 PM, [address] [place], [address], Procedure Notes * Category Sub-Category Detail Notes Keratoma Treatment Parring or Cutting o f Benign Hyperkeratotic Lesion(s) 73301 (2-4 Lesions) - The Benign hyperkeratotic lesions, [...] Notes * Radha AVELARDOB:1944 (78 yo F)Acc No.[id number]:08/19/2023 Progress Note Patient:?Rosio Radha Provider:?Ly Armenta DPM :1945???Age:78 Y???Sex:Female D ate:08/19/2023 Address:[address] [place] [address], [address] [place], [place] [id number] Pcp:Mckenna Doshi NP Subjective: * Chief Complaints: * ???At Risk FootcareToe Irrit ationSkin problem(s) * HPI: ???At Risk footcare:?Pt States Last PCP Visit:?Date?06/25/2022 ???Toe pain:?Location:?B/L feet?.?Duration:?several years?.?Course:?worse.?Aggrevated by:?shoes, any pressure ,.?Treatments:?change in shoes?.?Skin problems:?Nature:?dryness.?Location:?B/L ,.?Duration:?several months?.?Onset/Cause:?unknown.?Course:?worsened ,?.? * ROS:?General/Constitutional:?Nausea?denies.?Vomiting?denies.?Hunger Thirst?denies.?Loss appetite?denies.?Chills?denies.?Fatigue?denies.?Fever?denies.?Night Sweats?denies.?Unexplained weight loss?denies.?Ophthalmologic:?Blurred [...] * Family History:?Mother: dece ased, diagnosed with Diabetic - NIDDM, Unspecified essential hypertension.?Father: .?Siblings: diagnosed with Unspecified essential hypertension, Other [...] yes, walking Daily. ?Marital status: . ?Occupation: [employer]. * Medications:?TakingLevothyro xine Sodium 50 MCG Tablet [...] daycloZAPine , Notes: For AnxietyLorazepam , Notes: PRNTaking Levothyroxine Sodium 50 MCG Tablet Oral Taking [...] , Notes: For AnxietyTaking Lorazepam , Notes: PRNNot-Taking/PRNMetoprolol Succinate ER 50 MG Tablet Extended Release 24 Hour 1 tablet Orally Once a dayMedication List reviewed and reconciled with the patientNot-Taking/PRN Metoprolol Succinate ER 50 MG Tablet Extended Release 24 Hour 1 tablet Orally Once a dayMedication List reviewed and reconciled with the patient * Allergies:?Lisinopril: itchy Benicaryes[Allergies Verified] Objective: * Vitals:?Ht: 5 ft 0 in, Wt:17 0, BMI:33.20, Shoe size:8, BS:135. * ???Past Orders: ???Lab:HEMOGLOBIN A1C (GLYCO HEMOGLOBIN) (Order Date - 08/20/2022) (Collection Date - 06/25/2022) ? Value Reference Range ?HEMOGLOBIN A1C % (HH) 7.2 * Examination: ???Ophthalmology Referral: ?DIABETES EYE EXAM?Diabetic Retinopathy Screening:?Yes 06/2023 ?Findings of Diabetic Eye Exam:?no retinopathy?General Examination: ?GENERAL APPEARANCE:?Reveals a pleasant, alert, well nourished, well developed, well hydrated individual, who demonstrates proper attention to hygene/body habitus, and is in no acute distress .?ORIENTED:?person, place, and time .?FOOT EXAM:?Lower Extremity Neurological Exam performed:?Yes ?Footwear Evaluation?Footwear Evaluation performed:?Yes?Orthopedic: ?MUSCLE STRENGTH:?5/5 all groups in a symmetrical fashion , B/L.?GAIT ABNORMALITY:? Pronated.?BUNION:? Medially prominent 1st MPJ, B/L .?DIGITAL DEFORMITIES:??Digital contracture, PIPJ, 2-5 B/L, incompl- reducible to push-up test, no over, nor underlapping, with evidence of shoe producing skin irritation.?FOOTWEAR:? good condition, Non-Diabetic with no OT , worn, non-supportive, shoe gear properties exacerbate patient's foot/toe deformity , shoe gear properties exacerbate patients foot/toe deformity.?Neurological: ?SENSORY:?exam demonstrates. reduced vibration lower extremity,R>L 5.07 [...] in a stocking fashion, no fissure(s) present, B/L.?Vascular: ?DP PULSES:?2/4, B/L.?PT PULSES:?2/4, B/L.?CAPILLARY FILL TIME:?immediate, all digits, B/L.?SKIN TEMPERTURE GRADIENT OF THE LOWER EXTERMITIES:?normal, warm to cool, proximal to distal, B/L, B/L.?HAIR GROWTH/TEXTURE/ELASTICITY/TURGOR:?normal, B/L.?PIGMENTATION:?normal, B/L.? Assessment: * Assessment: 1.?Other hammer toe(s) (acqu ired), right foot - M20.41 (Primary), Chronic problem, Worse (4)?2.?Other hammer toe(s) (acquired), left foot - M20.42, Chronic problem, Worse (4),Rx Management (4)?3.?Type 2 diabetes mellitus with diabetic polyneuropathy - E11.42?4.?Xerosis of skin - L85.3, Acute problem, Uncomplicated (3),Rx Management (4)? Plan: * Treatment: 2.?Type 2 diabetes mellitus with diabetic polyneuropathy?Procedure: 65887-BQYW SKIN LESIONS, 2 TO 4 ?Procedure: S7245-QGKFMPQI DYSTROPHIC NAILS ANY # 3.?Xerosis of skin? Start Ammonium Lactate Cream, 12 %, 1 application, Externally, Twice a day, 30 days, 60, Refills 2.?? * Procedures:?Keratoma Treatment:?Parring or Cutting of Benign Hyperkeratotic Lesion(s)?12678 (2-4 Lesions) - The Benign hyperkeratotic lesions, as described above were pared, and/or cut utilizing a sterile #15 blade, tissue nippers, and/or dremel.?Nail Reduction:?Nail Reduction?Trimming of dystrophic nails performed to reduce/remove overall nail length and girth, by manual and electrical means with use of a nail nipper and/or dremel, to more viable healthy nail plate or bed tissue 6-10 (G0127).? * Procedure Codes:?13884 TRIM SKIN LESIONS, 2 TO 4, Modifiers: XS G0127 TRIMMING DYSTROPHIC NAILS ANY #, Modifiers: XS * Preventive Medicine:? ??Counseling:?Discussion:?-14: Office or other outpatient visit for the evaluation and management of an established patient, which required a medically appropriate history and/or examination and MODERATE level of DECISION MAKING for: 1 OR MORE CHRONIC PROBLEM(S) THATS WORSENING, 2 STABLE CHRONIC PROBLEMS, A NEWLY DIAGNOSED PROBLEM WITH UNCERTAIN PROGNOSIS, AN ACUTE COMPLICATED INJURY WITH MULTIPLE TREATMENT OPTIONS, OR AN ACUTE PROBLEM WITH ACCOMPANYING SYSTEMIC SYMPTOMS, THAT POSE(S) A MODERATE RISK OF MORBIDITY. THIS CONDITION MAY ALSO INCLUDE RX DRUG MANAGEMENT, OR A DECISON FOR MINOR SURGERY. The visit on the day of the [...] have encouraged the patient to call the office.?Digital Surgery:?Pt defers on any surgical intervention., We elected to try conservative treatment at the present time.?Digital Treatment:?HT- I explained to the patient the possible etiologies of Hammertoes, including genetics/foot type/shoegear/activity level/exercise routine and the risks/benefits of all the different treatment options for their pain including: No treatment at all, Rest, Ice, New/supportive/wider/deeper Shoegear, Digital Padding/Strapping/Taping/Bracing/Gel protective sleeves, Foot/Ankle AFO Bracing, Stretching exercises, Deep Tissue Massage, Arch support/shoe inserts with splay metatarsal padding, and Custom orthoses. I insisted that any digital devices be removed daily and not worn overnight for safety. The patient is to carefully examine the toes daily for any skin irritation while using any splinting or padding device. The advantages and disadvantages of each option were discussed and the patients questions re: shoegear, padding, custom vs prefabricated inserts, activity level, and consistency in home treatment regimens for optimal success were answered to their verbally confirmed satisfaction, Rx: Extra Depth Diabetic Shoes with 3 pair of custom heat-molded inserts.?Xerosis:?The patient was counseled on the diagnosis, potential etiologies, and treatment options for their skin condition. We discussed the risks and benefits of each option from performing no treatment, to utilizing OTC topical skin creams/ointments, to utilizing prescription topical creams/ointments, to utilizing customized compounded topical medications and use of nocturnal occlusion with any/all previously detailed therapies. We discussed the advantages and disadvantages of each possible treatment and importance for adherence to all the recommended therapies for optimum success and avoid potential complications such as open sore/infection/possible hospitalization. We discussed the potential effectiveness of each topical preparation as well as each ones possible side effects and/or patient medication interactions. Patient questions re: use, dosage, successful outcomes, and application consistency were reviewed and the patient verbalized that all answers were clearly understood. The patient has decided to apply Rx skin creams to their feet save the interspaces while paying special attention to the heels. Such was sent to their pharmacy at the time of visit.? * Follow Up:?3 Months * Images: * Sign off status: Completed true * Provider:?Ly Armenta DPM Date:?2023 Generated for Kelvin betancourt/Romeo/Marci on:?11/21/2024 03:06 PM EDT History and Physical Notes * HPI (History of Present Illness) Category Sub-Category Detail Notes Category Not es Toe pain Location: B/L feet Duration: several years Course: worse Aggravated by: shoes, any pressure , Treatments: change in shoes Skin problems Nature: dryness Location: B/L , Duration: several months Onset/Cause: unknown Course: worsened , At Risk footcare Pt States Last PCP Visit: Date: 2 Examination Category Sub-Category Detail Notes Category Not [...] in a stocking fashion, no fissure(s) present, B/L Orthopedic GAIT ABNORMALITY: Pronated BUNION: Medially prominent 1 st MPJ, B/L FOOTWEAR EVALUATION: good condition, Non -Diabetic with no OT , worn, non- supportive, shoe gear properties exacerbate patient's foot/toe deformity , shoe gear properties exacerbate patients foot/toe deformity DIGITAL DEFORMITIES: Digital contracture , PIPJ, 2-5 B/L, incompl-reducible to push-up test, no over, nor underlapping, with evidence of shoe producing skin irritation MUSCLE STRENGTH: 5/5 all groups in a symmetrical fashion , B/L General Examination GENERAL APPEARANCE: Reveals a pleasant, alert, well nourished, well developed, well hydrated individual, who demonstrates proper attention to hygene/body habitus, and is in no acute distress FOOT EXAM: Lower Extremity Neurological Exa m performed:: Yes ORIENTED: person, place, and t sesar Footwear Evaluation Footwear Evaluation performe d:: Yes Ophthalmology Referral DIABETES EYE EXAM Diabeti c Retinopathy Screening:: Yes 06/2023 Findings of Diabetic Eye Exam:: no retin opathy Vascular DP PULSES (B): 2/4, B/L PT PULSES (B): 2/4, B/L CAPILLARY FILL TIME: immediate, all digi ts, B/L TEMPERTURE GRADIENT (C): normal, warm to cool, proximal to distal, B/L, B/L TROPHIC CONDITION-TEXTURE/ELASTICITY/TURGOR/HAIR GROWTH (B): normal, B/L PIGMENTATION: normal, B/L Nails NAILS are: Elongated, overgrown, dystro phic, 1-5 B/L, ,
--- OUTSIDE RECORDS SUMMARY | 2024-11-21 15:07 | XMS_ITS | Encounter Summary ---
Author Organization [facility] Address [address] [facility] [address] [place] [address] Phone Care Team Providers Care Network Support Name Role Phone Mckenna Doshi NP Primary Care Provider [phone] Sebas Crisostomo MD Unavailable Roshan Jarvis OD Unavailable [phone] Moi Patton MD Primary Care Provider [phone] Noé Richmond PA-C Primary Care Provider [phone] Encounter Details Date Type Department Care Team (Late st Contact Info) Description 10/21/2018 Ancillary Orders [facility] Internal Medicine [address] [place] [address] Mckenna Doshi, SPA ASSISTANT MANAGER [address] [place] [address] Breast screening Social History Tobacco Use Types [...] Info) Description 02/27/2025 8:40 AM EDT Appointment [facility] Internal Medicine [address] [place] [address] Noé Richmond PA-C [address] [place] [address] [email or web address] documented as of this encounter Results * BI MAMMOGRAM SCREENING WITH TOMOSYNTHESIS WITH CAD (BILATERAL) (12/14/2018 9:29 AM EDT) Anatomical Region Laterality Modality Breast Left, Breast Right, Breast Bilateral Bila teral Mammography 12/14/2018 9:50 PM EDT Impressions 12/14/2018 9:53 PM EDT No mammographic evidence of malignancy. Stable mammogram. RECOMMENDED FOLLOWUP: ??Routine screening mammography is recommended, as clinically appropriate. The results will be sent to the patient. BI-RADS CATEGORY: 2 - Benign finding. BREAST DENSITY: There are scattered fibroglandular densities. ?? POS - CDHMAMA Narrative 12/14/2018 9:53 PM EDT BI MAMMOGRAM SCREENING WITH TOMOSYNTHESIS WITH CAD (BILATERAL) HISTORY: Screening. ? COMPARISON: Prior studies dating back to 2012, most recently 12/10/2017. TECHNIQUE: Digital breast tomosynthesis was performed in CC and MLO projections. Reconstructed 2-D C-views generated from the tomosynthesis images. Images interpreted in conjunction with R-2 Image Partition Assembly Machine Operator computer-aided detection (CAD). FINDINGS: BREAST DENSITY: There are scattered fibroglandular densities. There are no suspicious masses, suspicious areas of architectural distortion or suspicious clusters of microcalcifications. ?? Stable bilateral benign calcifications and scattered low density bilateral subcentimeter circumscribed nodules. Procedure Note Sharmila Devries MD - 12/14/2018 BI MAMMOGRAM SCREENING WITH TOMOSYNTHESIS WITH CAD (BILATERAL) HISTORY: Screening. COMPARISON: Prior studies dating back to 2012, most recently 12/10/2017. TECHNIQUE: Digital breast tomosynthesis was performed in CC and MLOprojections. Reconstructed 2-D C-views generated from the tomosynthesisimages. Images interpreted in conjunction with R-2 Image Checkercomputer-aided detection (CAD). FINDINGS: BREAST DENSITY: There are scattered fibroglandular densities. There are no suspicious masses, suspicious areas of architecturaldistortion or suspicious clusters of microcalcifications. Stable bilateral benign calcifications and scattered low density bilateralsubcentimeter circumscribed nodules. IMPRESSION: No mammographic evidence of malignancy. Stable mammogram. RECOMMENDED FOLLOWUP: Routine screening mammography is recommended, asclinically appropriate. The results will be sent to the patient. BI-RADS CATEGORY: 2 - Benign finding. BREAST DENSITY: There are scattered fibroglandular densities. POS - CDHMAMA Mckenna Doshi NP IMG MG EXAMS documented in this encounter Visit Diagnoses Diagnosis Breast screening Breast screening, unspecified Breast screening Breast screening, unspecified documented in this encounter Additional Health Concerns Assessment Noted Time PHQ-2 Depression Total Score: 0 08/10/19 19 9:57 AM EST documented as of this encounter Care Teams Network Support Relationship Specialty Start Date End Date Mckenna Doshi NP PCP - General Family Medicine 10/25/17 09/26/23 Moi Patton MD [address] [place] [address] PCP - General Internal Medicine 09/27/23 05/22/24 Noé Richmond PA-C [address] [place] [address] [email or web address] PCP - General Physician Boatswain'S Mate 05/23/24 Sebas Crisostomo MD [address] [place] [address] [email or web address] Insurance Assigned Provider 11/26/18 02/04/19 Roshan Jarvis OD [address] [place] [address] Optometry 09/05/19 documented as of this encounter Additional Source Comments The information contained in this document represents components of the legal health record. It is not the complete legal health record.[facility]
--- OUTSIDE RECORDS SUMMARY | 2024-11-21 15:07 | XMS_ITS | Encounter Summary ---
Author Organization [facility] Address [address] [facility] [address] [place] [address] Phone Care Team Providers Care Pewter Fabricator Name Role Phone Mckenna Doshi NP Primary Care Provider [phone] Sebas Crisostomo MD Unavailable Roshan Jarvis OD Unavailable [phone] Moi Patton MD Primary Care Provider [phone] Noé Richmond PA-C Primary Care Provider [phone] Encounter Details Date Type Department Care Team (Late st Contact Info) Description 10/25/2017 Ancillary Orders [facility] [address] [place] [address] [place] [address] Lewis Segura MD [address] [place] [address], [address] [place] [address] [email or web address] Social History Tobacco Use Types Packs/Day Years [...] Info) Description 02/27/2025 8:40 AM EDT Appointment [facility] Internal Medicine [address] [place] [address] Noé Richmond PA-C [address] [place] [address] [email or web address] documented as of this encounter Visit Diagnoses Not on filedocumented in this encounter Additional Health Concerns Assessment Noted Time PHQ-2 Depression Total Score: 0 08/05/19 18 9:35 AM EST documented as of this encounter Care Teams Pewter Fabricator Relationship Specialty Start Date End Date Mckenna Doshi NP PCP - General Family Medicine 10/25/17 09/26/23 Moi Patton MD [address] [place] [address] PCP - General Internal Medicine 09/27/23 05/22/24 Noé Richmond PA-C [address] [place] [id number] PCP - General Physician Motorized Squad Captain 05/23/24 Sebas Crisostomo MD [address] [place] [address] Insurance Assigned Provider 11/26/18 02/04/19 Roshan Jarvis OD [address] [place] [address] Optometry 09/05/19 documented as of this encounter Additional Source Comments The information contained in this document represents components of the legal health record. It is not the complete legal health record.[facility]
--- OUTSIDE RECORDS SUMMARY | 2024-11-21 15:07 | XMS_ITS | Encounter Summary ---
Author Organization [facility] Address [address] [facility] [address] [place] [address] Phone Care Team Providers Care Fish Rod Maker Name Role Phone Mckenna Doshi NP Primary Care Provider [phone] Roshan Jarvis OD Unavailable [phone] Moi Patton MD Primary Care Provider [phone] Noé Richmond PA-C Primary Care Provider [phone] Encounter Details Date Type Department Care Team (Late Contact Info) Description 08/30/2020 Procedure Pass [facility], Ct Scan - [address] [address] Social History Tobacco Use Types Packs/Day Years [...] Info) Description 02/27/2025 8:40 AM EDT Appointment [facility] Internal Medicine [address] [place], [place] [id number] Noé Richmond PA-C [address] [place] [address] [email or web address] documented as of this encounter Visit Diagnoses Not on filedocumented in this encounter Additional Health Concerns Assessment Noted Time PHQ-2 Depression Total Score: 0 06/14/20 19 10:59 AM EST documented as of this encounter Care Teams Fish Rod Maker Relationship Specialty Start Date End Date Mckenna Doshi NP PCP - General Family Medicine 10/25/17 09/26/23 Moi Patton MD [address] [place] [address] PCP - General Internal Medicine 09/27/23 05/22/24 Noé Richmond PA-C [address] [place] [id number] PCP - General Physician Manager Investment 05/23/24 Roshan Jarvis OD Optometry 09/05/19 documented as of this encounter Additional Source Comments The information contained in this document represents components of the legal health record. It is not the complete legal health record.[facility]
== END 2024-11-21 13:06 | disposition home or self-care (01) ==
LOC: HO.HMGCX 13:05
PROVIDERS: PCP Physician Assistant Surgical; Visit Provider Physician Assistant Surgical
DX: M79.604 Pain in right leg (principal)
CPT/HCPCS: 93971

== ENCOUNTER → 2024-11-21 13:16 | Outpatient (BNV) | payer MEDICARE, SELFPAY | PROVIDERS: PCP Physician Assistant Surgical; Visit Provider Radiology Diagnostic Radiology | DX: M71.21 Synovial cyst of popliteal space [Baker], right knee (principal); M79.661 Pain in right lower leg | CPT/HCPCS: 93971 ==